=== PATIENT | male | born 1960 | race Caucasian/White ===

== ENCOUNTER 2016-12-08 20:15 | Inpatient (IN) | payer OTHER ==
[~2016-12-08] VITALS: Ht 182.9 cm; Wt 179.2 kg
[~2016-12-08 20:15] MED LIST: ALBUTEROL S2 MG/5 ML PO; ALBUTEROL SULFAT0.51 IH; ALBUTEROL1.25 MG/3 INH; AMBIEN10 MG PO; ASPIR 8181 MG PO; ASPIRIN81 MG PO; ATROVENT H0.017 MG/1 IH; BREO ELLIPTA1 PO1 IH; CALCIUM MAGNESIUM PO; CELEBREX200 MG PO; CLINDAMYCIN HC300 MG PO; COR3 PO; DETROL LA2 MG PO; DETROL LA4 MG PO; DICLOFENAC SODI75 MG PO; DITROPAN XL15 MG PO; FIORICET1 TAB PO; FLE10 PO; FLEXERIL10 MG PO; FLO4 PO; GABAPENTIN300 M3 PO; GLIPIZIDE5 MG PO; IBUPROFEN800 MG PO; INCRUSE EL62.5 MCG/A IH; KEFLEX500 MG PO; LAC PO; LANSOPRAZOLE30 M2 PO; LEVAQUIN500 MG PO; LIPI10 PO; LORAZEPAM1 MG PO; LOVASTATIN20 MG PO; MAXALT10 MG PO; MECLIZINE HYD12.5 MG PO; MEDDP PO; METFORMIN HCL1000 MG PO; METFORMIN HCL500 MG PO; MEVACOR20 MG PO; MIDRIN1 CAP PO; MIRUD PO; MOTRIN800 MG PO; MUCINEX600 MG PO; NEU300 PO; NEURONTIN600 MG PO; NOR5 PO; PRE30 PO; PREDNISONE1 MG PO; PREDNISONE10 MG PO; PREVACID SOLUTA15 MG PO; PRILOSEC20 MG PO; PROCARDIA XL90 MG PO; PULMICORT180 MCG/Ac IH; RESTORIL30 MG PO; ROZEREM8 M1 PO; SENTRY SENIOR1 TAB PO; SEROQUEL50 M1 PO; THERAGRAN-M1 TA4 PO; TRAZODONE HYDR100 MG PO; TRAZODONE HYDR150 MG PO; TRE400 PO; TUDORZA PR400 MCG/A1 IH; VENTOLIN H0.09 MG/A1 INH; VESICARE10 M1 PO; ZESTRIL5 MG PO; ZIT250 PO; ZOC10 PO; ZOF4 PO; ZOLOFT100 MG PO; ZOLOFT50 MG PO
--- NOTE | 2016-12-08 20:46 | NUR ---
PT TO ED WITH C/O SOB AND RIGHT SIDED CHEST PAIN X "COUPLE WEEKS" WITH WORSENING OF SYMPTOMS SINCE YESTERDAY. PER PT, PT ON 3L O2 AT HOME, "LITTLE BIT OF COUGHING WITH YELLOWISH" COLORED PHELGM. PT DENIES HAVING FEVER AT, HOWEVER HAD HOT AND COLD CHILLS. PT POINTS TO RIGHT CHEST WALL WHEN LOCATING PAIN, DESCRIBES PAIN SHARP AND PAIN ONLY WITH DEEP INSPIRATIONS. PT A&OX4,NO ACUTE DISTRESS NOTED, RESP EVEN AND UNLABORED, ON FULL CM WITH FAMILY MEMBER AT THE BEDSIDE. PER PT, PT ALSO TOOK IBUPROFEN AT NOON TO ATTEMPT TO EASE PAIN. PT LUNG SOUNDS ARE CLEAR TO ALL RUCKER AT THIS TIME.
--- NOTE | 2016-12-08 21:04 | NUR ---
PT MEDICATED PER ORDER. SEE EMAR.
[2016-12-08 21:21] LABS: BASOPHIL % 0.5 % (0-2); PLATELET COUNT 247 x10^3mcL (130-400)
[2016-12-08 21:26] LABS: CALCIUM 8.9 mg/dL (8.5-10.1); CARBON DIOXIDE 31.5 mmol/L (21-32); CHLORIDE SERUM 105 mmol/L (98-107); GFR1 > 60 mL/min; GLUCOSE SERUM 90 mg/dL (74-106); POTASSIUM SERUM 3.7 mmol/L (3.5-5.1); SODIUM SERUM 142 mmol/L (136-145)
[2016-12-08 21:30] LABS: ALBUMIN 3.5 g/dL (3.4-5.0); ALKALINE PHOSPHATASE 87 U/L (46-116); ALT/SGPT 31 U/L (16-63); AST/SGOT 17 U/L (15-37); BILIRUBIN TOTAL 0.5 mg/dL (0.20-1.00); TOTAL PROTEIN, SERUM 6.6 g/dL (6.4-8.2)
--- NOTE | 2016-12-08 21:48 | NUR ---
PT ALSO WITH O2 TANK FROM HOME.
[2016-12-08 21:59] LABS: CK-MB 0.5 ng/mL (0-3.6)
--- NOTE | 2016-12-08 22:29 | NUR ---
PT SITTING UP IN BED, POSITIONED TO COMFORT, STATES TO "JUST NOT FEELING GOOD" BUT UNABLE TO SPECIFY WHAT WAS "NOT FEELING GOOD". PT DENIES NAUSEA OR PAIN AT THIS TIME. PT A&XO4,NO ACUTE DISTRESS NOTED, RESP EVEN AND UNLABORED.
[2016-12-08] MEDS ORDERED: ZOLOFT25 MG (22:42)
[2016-12-08] MEDS ORDERED: PROVENTIL0.09 MG/A1 (22:42)
--- NOTE | 2016-12-08 22:52 | NUR ---
REPORT GIVEN TO JARRETT GONCALVES TO ASSUME CARE OF PT.
--- NOTE | 2016-12-08 23:09 | NUR ---
PT TRANSFERRED TO TELE BED 236B VIA [facility] WITH RN MARY AND EMT NEO AT THE BEDSIDE. PT ON CM AND O2 TRANSFERRED WITHOUT INCIDENCE. PT REMAINED A&OX4, NO DISTRESS NOTED,RESP EVEN AND UNLABORED.
[2016-12-08] MEDS ORDERED: SEROQUEL100 MG PO (23:10)
[2016-12-08 23:15] VITALS: BP 130/78
--- NOTE | 2016-12-08 23:24 | NUR ---
REC'D AOX4, SPEECH CLEAR, C/O SHERMAN, CHEST PAIN AND BACK PAIN 01/10. ATTACHED TELE 28. ON 3L VIA NC, NO SOB NOTED. AMBULATORY WITH STEADY GAIT. IV SITE WNL. ORIENTED TO ROOM AND SURROUNDINGS. CALL LIGHT WITHIN REACH, PROVIDED REPORT TO IVANNA FARIAS FOR CONTINUITY OF CARE.
[2016-12-08 23:39] LABS: CHOLESTEROL/HDL RATIO 3.5
[2016-12-08 23:46] LABS: FREE T4 0.62 ng/dL (0.76-1.46); FREE THYROXINE INDEX 1.5 ug/dL (1.4-4.5); T4(THYROXINE) 5.1 ug/dL (4.7-13.3)
[2016-12-08 23:48] VITALS: BP 130/78
--- NOTE | 2016-12-08 23:49 | NUR ---
PT AWAKE AND ALERT WITH C/O CHEST PAIN AND HEADACHE. GAVE PT MORPHINE IVP. PT TOLERATED IT WELL. IV INTACT ON THE RIGHT HAND INFUSING WITH NS AT 50 ML/HR. ON TELE # 28, SINUS RHYTHYM ON THE MONITOR. MADE PT COMFORTABLE. PLACED CALL LIGHT WITH IN REACH. WILL CONTINUE TO MONITOR.
[2016-12-09 01:01] LABS: T3 TOTAL 1.09 ng/mL
[2016-12-09 02:27] LABS: UA SPECIFIC GRAVITY 1.015 (1.005-1.035); microscopic required? YES; urine erythrocyte NEGATIVE (NEGATIVE)
[2016-12-09 02:35] LABS: AMPHETAMINE QUAL UR NONE DETECTED (NEG <=1000)
[2016-12-09 05:18] VITALS: BP 114/65
--- NOTE | 2016-12-09 05:27 | NUR ---
PT QUIET AND RESTING. NO SOB AND C/O RESPIRATORY DISCOMFORT. IV INTACT AND INFUSING ORDERED. MADE PT COMFORTABLE. WILL ENDORSE TO THE AM NURSE ACCORDINGLY.
[2016-12-09 06:32] LABS: PLATELET COUNT 257 x10^3mcL (130-400); RED CELL DISTRIBUTION WIDTH 14.4 % (11.5-14.5)
[2016-12-09 06:44] LABS: BASOPHIL % 0 % (0-2)
[2016-12-09 07:10] LABS: CALCIUM 9.3 mg/dL (8.5-10.1); CARBON DIOXIDE 29.3 mmol/L (21-32); CREATININE SERUM 1.1 mg/dL (0.7-1.3); GFR1 > 60 mL/min; GLUCOSE SERUM 218 mg/dL (74-106); MAGNESIUM 2.4 mg/dL (1.8-2.4); PHOSPHOROUS 2.7 mg/dL (2.5-4.9)
[2016-12-09 07:23] LABS: CHLORIDE SERUM 102 mmol/L (98-107); POTASSIUM SERUM 4.3 mmol/L (3.5-5.1); SODIUM SERUM 139 mmol/L (136-145)
--- NOTE | 2016-12-09 07:30 | NUR ---
BEDSIDE REPORT RECEIVED FROM JARRETT GONCALVES. PATIENT SITTING UP IN BED, AWAKE AND ALERT, O2 SAT 97% ON 3L NC. PATIENT REPORTING SHORTNESS OF BREATH. RT CALLED AND WILL COME TO GIVE TREATMENT. RR 16, REGULAR. A/OX4, DENIES HEADACHE OR DIZZINESS. TELE 28, RATE IN 50s. OCCASIONALLY DROPS INTO 40s, DR. BALDWIN AWARE. PALPABLE PERIPHERAL PULSES. LUNGS CTA APICES, DIMINISHED BASES, O2 SAT 95% ON ROOM AIR, NO COMPLAINT OF SHORTNESS OF BREATH OR CHEST PAIN. ABD SOFT, NONTENDER, BOWEL SOUNDS ACTIVE. DENIES SOLIS/VTG/BRANNON. REPORTS BM YESTERDAY, NORMAL. NO COMPLAINTS. AMBULATORY. REPORTS HE WAS NOT TAKING HIS THYROID MEDICATION ORDERED PRIOR TO ADMISSION. REPORTS FEELING BETTER AT THIS TIME. CALM AND COOPERATIVE. WILL MONITOR.
--- NOTE | 2016-12-09 07:30 | NUR ---
BEDSIDE REPORT RCD FROM JARRETT GONCALVES. PATIENT AWAKE, ALERT. REPORTING DIFFICULTY BREATHING. RT CALLED. O2 SAT 97% ON ROOM AIR, RR 16. LUNGS CLEAR TO APICES, DIMINISHED TO BASES. NO APPARENT DISTRESS NOTED. TELE 28, RATE IN 70s, NO COMPLAINT OF CHEST PAIN. 1+ BLE PITTING EDEMA, PALPABLE PERIPHERAL PULSES, SCDs IN PLACE. ABD OBESE, NONTENDER, BOWEL SOUNDS ACTIVE. DENIES SOLIS/VTG/BRANNON. LAST BM YESTERDAY, NORMAL. NO COMPLAINTS. AMBULATORY. SKIN INTACT. DENIES HEADACHE OR DIZZINESS, EQUAL HAND LINK TRAINER. NS 50 ML/HR TO RIGHT HAND W/O COMPLICATIONS. CALM AND COOPERATIVE. WILL MONITOR.
--- NOTE | 2016-12-09 09:20 | NUR ---
MEDICATIONS GIVEN PER MAR. PATIENT WITH NO NEEDS AT THIS TIME. WILL MONITOR.
[2016-12-09 10:00] VITALS: BP 121/59
--- NOTE | 2016-12-09 10:00 | NUR ---
OFFERED PATIENT LARGER BED. PATIENT REFUSES, STATES CURRENT BED IS FINE AND DOES NOT WISH TO HAVE A LARGER BED. WEIGHT 405 POUNDS ON BED SCALE.
--- NOTE | 2016-12-09 11:35 | NUR ---
PATIENT SITTING UP IN BED, NO NEEDS AT THIS TIME.
--- NOTE | 2016-12-09 14:58 | NUR ---
NS 10 ML/HR INFUSION RATE CHANGE. PATIENT SITTING UP IN BED, ALERT, NO NEEDS AT THIS TIME.
[2016-12-09 15:05] VITALS: BP 97/60
[2016-12-09 17:26] VITALS: BP 107/49
--- NOTE | 2016-12-09 18:48 | NUR ---
PATIENT REPORTING 7/10 HEADACHE, PERCOCET GIVEN PER OCT.
--- NOTE | 2016-12-09 19:27 | NUR ---
REPORT GIVEN TO JARRETT GONCALVES. PATIENT REPORTING NO RELIEF OF HIS HEADACHE AT THIS TIME, REPORTING 02/09. ENDORSED TO IVANNA. NS 10 ML/HR TO RIGHT HAND W/O COMPLICATIONS. 2L NC. BED LOW, CALL LIGHT WITHIN REACH. CARE ENDORSED.
--- NOTE | 2016-12-09 20:00 | NUR ---
PT A/A/O X4. DENIES DIZZINESS C/O HEADACHE, WITH PAIN LEVEL OF 7/10. GAVE PT MORPHINE IVP. PT TOLERATED IT WELL. BREATH SOUNDS CLEAR. BREATHING EVEN AND UNLABORED ON 3L NC. DENIES CHEST PAIN AND PRESSURE. BOWEL SOUNDS ACTIVE. NO C/O N/V AND ABD PAIN. PITTING EDEMA NOTED ON BLE. IV INTACT ON THE RIGHT HAND INFUSING WITH NS AT 10 ML/HR. MADE PT COMFORTABLE. PLACED CALL LIGHT WITH IN REACH. WILL CONTINUE TO MONITOR.
[2016-12-09 20:59] VITALS: BP 103/60
--- NOTE | 2016-12-10 02:00 | NUR ---
PT RESTING WITH EYES CLOSED. SHOWS NO DISTRESS AND DISCOMFORT. MADE PT COMFORTABLE. WILL CONTINUE TO MONITOR.
[2016-12-10 05:40] VITALS: BP 104/64
[2016-12-10 06:18] LABS: BASOPHIL % 0.1 % (0-2); PLATELET COUNT 258 x10^3mcL (130-400); RED CELL DISTRIBUTION WIDTH 14.5 % (11.5-14.5)
[2016-12-10 06:47] LABS: CALCIUM 9.3 mg/dL (8.5-10.1); CARBON DIOXIDE 27.5 mmol/L (21-32); CHLORIDE SERUM 102 mmol/L (98-107); GFR1 > 60 mL/min; GLUCOSE SERUM 161 mg/dL (74-106); MAGNESIUM 2.1 mg/dL (1.8-2.4); PHOSPHOROUS 3.9 mg/dL (2.5-4.9); POTASSIUM SERUM 4.2 mmol/L (3.5-5.1); SODIUM SERUM 137 mmol/L (136-145)
--- NOTE | 2016-12-10 07:02 | NUR ---
PT QUIET AND RESTING. NO SIGNIFICANT CHANGES NOTED. IV INTACT AND INFUSING ORDERED. MADE PT COMFORTABLE. WILL ENDORSE TO THE AM NURSE ACCORDINGLY.
[2016-12-10 08:00] VITALS: BP 106/58
[2016-12-10] MEDS ORDERED: ZITHROMAX500 MG PO (11:01)
[2016-12-10] MEDS ORDERED: LAC PO (11:02)
[2016-12-10] MEDS ORDERED: PREDNISONE5 M1 PO (11:04)
[2016-12-10 11:15] VITALS: BP 106/54
[2016-12-10] MEDS ORDERED: LIPI10 PO (11:29)
[2016-12-10 11:49] VITALS: BP 106/58
--- NOTE | 2016-12-10 14:10 | NUR ---
PT PROVIDED WITH DISCHARGE PAPERWORK AND INSTRUCTIONS. INSTRUCTED TO FOLLOW UP WITH PRIMARY CARE PROVIDER AND TO BRING DISCHARGE PACKET ON FOLLOW UP APPOINTMENT. HEP LOCK DISCONTINUED. PT BROUGHT DOWN TO DISCHARGE OFFICE BY MANAGER LAW, TO BE TAKEN HOME BY SON.
== END 2016-12-10 14:10 | disposition home or self-care (01) | DRG 140 ==
LOC: ED 20:15 → DU 22:22 → MU 12-10 04:40
PROVIDERS: Emergency Medicine; ADMIT Family Medicine
DX: J44.1 Chronic obstructive pulmonary disease with (acute) exacerbation (principal); J96.02 Acute respiratory failure with hypercapnia; D68.69 Other thrombophilia; E11.65 Type 2 diabetes mellitus with hyperglycemia; E11.42 Type 2 diabetes mellitus with diabetic polyneuropathy; E66.2 Morbid (severe) obesity with alveolar hypoventilation; I10 Essential (primary) hypertension; F31.30 Bipolar disorder, current episode depressed, mild or moderate severity, unspecified; R25.1 Tremor, unspecified; H26.9 Unspecified cataract; M47.892 Other spondylosis, cervical region; M94.0 Chondrocostal junction syndrome [Tietze]; G47.33 Obstructive sleep apnea (adult) (pediatric); F41.8 Other specified anxiety disorders; F32.9 Major depressive disorder, single episode, unspecified; M19.90 Unspecified osteoarthritis, unspecified site; Z99.81 Dependence on supplemental oxygen; D64.9 Anemia, unspecified; Z90.49 Acquired absence of other specified parts of digestive tract; Z88.8 Allergy status to other drugs, medicaments and biological substances; Z68.43 Body mass index [BMI] 50.0-59.9, adult; Z98.41 Cataract extraction status, right eye; Z87.891 Personal history of nicotine dependence; Z79.84 Long term (current) use of oral hypoglycemic drugs; Z80.0 Family history of malignant neoplasm of digestive organs; Z80.3 Family history of malignant neoplasm of breast
CPT/HCPCS: 36600; 80307; 83880; 84439; J0696; J1644; J2270; J2920; J2930; J3475; J7030; J7512; J7613; J7620; J7644; Q0092

== ENCOUNTER 2017-01-06 22:03 | Inpatient (IN) | payer OTHER ==
[~2017-01-06] VITALS: Ht 182.9 cm; Wt 184.2 kg
[~2017-01-06 22:03] MED LIST changes: +PREDNISONE5 M1 PO; +PROVENTIL0.09 MG/A1; +SEROQUEL100 MG PO; +ZITHROMAX500 MG PO; +ZOLOFT25 MG
--- NOTE | 2017-01-06 22:17 | NUR ---
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 PT REPORTS AN INCREASE IN SOB STARTING TODAY. PT STATES HE HAS HX OF COPD AND "I'M USUALLY ALWAYS SOB BUT TODAY IT GOT WORSE". PT REPORTS RLE PAIN X3 DAYS. PT HAS REDNESS AND SWELLING TO RLE. PT STATES HE IS ON O2 3L VIA NC AT HOME. RESPIRATIONS EVEN AND UNLABORED. NO ACUTE DISTRESS NOTED. BED IN LOW POSITION. DAUGHTER AT BEDSIDE. CALL LIGHT WITHIN REACH.
--- NOTE | 2017-01-06 22:49 | NUR ---
LAB AT BEDSIDE
[2017-01-06 23:00] LABS: BASOPHIL % 0.7 % (0-2); PLATELET COUNT 231 x10^3mcL (130-400)
[2017-01-06 23:05] LABS: CALCIUM 8.5 mg/dL (8.5-10.1); CARBON DIOXIDE 29.8 mmol/L (21-32); CHLORIDE SERUM 107 mmol/L (98-107); GFR1 > 60 mL/min; GLUCOSE SERUM 142 mg/dL (74-106); POTASSIUM SERUM 3.9 mmol/L (3.5-5.1); SODIUM SERUM 143 mmol/L (136-145)
[2017-01-06 23:09] LABS: RED CELL DISTRIBUTION WIDTH 14.9 % (11.5-14.5)
[2017-01-06 23:10] LABS: ALKALINE PHOSPHATASE 106 U/L (46-116); ALT/SGPT 27 U/L (16-63); AST/SGOT 19 U/L (15-37); BILIRUBIN TOTAL 0.33 mg/dL (0.20-1.00); TOTAL PROTEIN, SERUM 6.5 g/dL (6.4-8.2)
[2017-01-06 23:11] LABS: ALBUMIN 3.1 g/dL (3.4-5.0)
[2017-01-06 23:21] LABS: CK-MB < 0.5 ng/mL (0-3.6); CREATINE KINASE 77 U/L (39-308)
--- NOTE | 2017-01-07 00:35 | NUR ---
PT LAYING IN BED, IN POSITION OF COMFORT. PT STATES PAIN IS TOLERABLE. RESPIRATIONS EVEN AND UNLABORED. NO ACUTE DISTRESS NOTED. BED IN LOW POSITION. CALL LIGHT WITHIN REACH.
[2017-01-07] MEDS ORDERED: SERO100 PO (01:05)
[2017-01-07] MEDS ORDERED: PRE30 PO (01:06)
[2017-01-07] MEDS ORDERED: ASPIR 8181 MG PO (01:06)
[2017-01-07] MEDS ORDERED: VESICARE10 M1 PO (01:06)
[2017-01-07] MEDS ORDERED: GLUCOTROL5 MG PO (01:06)
[2017-01-07] MEDS ORDERED: ZOLOFT100 MG PO (01:07)
[2017-01-07] MEDS ORDERED: CELEBREX200 MG PO (01:07)
[2017-01-07] MEDS ORDERED: DICLOFENAC SODI75 MG PO (01:08)
[2017-01-07] MEDS ORDERED: NOR5 PO (01:08)
[2017-01-07] MEDS ORDERED: GABAPENTIN600 M1 PO (01:08)
[2017-01-07] MEDS ORDERED: MAGNESI PO (01:09)
[2017-01-07] MEDS ORDERED: CALCIUM PO (01:09)
[2017-01-07] MEDS ORDERED: MUCINEX DM1 TE1 PO (01:09)
[2017-01-07] MEDS ORDERED: BREO ELLIPTA1 PO1 IH (01:10)
[2017-01-07] MEDS ORDERED: INCRUSE EL62.5 MCG/A IH (01:11)
[2017-01-07] MEDS ORDERED: MID PO (01:12)
[2017-01-07] MEDS ORDERED: FLE10 (01:12)
[2017-01-07] MEDS ORDERED: ZOF4 (01:12)
[2017-01-07] MEDS ORDERED: SENTRY TABLET1 EACH PO (01:13)
[2017-01-07] MEDS ORDERED: ALBUTEROL SULFAT0.51 (01:13)
[2017-01-07] MEDS ORDERED: MECLIZINE HYDRO25 M1 PO (01:13)
[2017-01-07] MEDS ORDERED: LORAZEPAM1 MG (01:14)
--- NOTE | 2017-01-07 01:36 | NUR ---
ULTRASOUND AT BEDSIDE.
--- NOTE | 2017-01-07 01:37 | NUR ---
REPORT GIVEN TO TALYA FARIAS.
[2017-01-07 02:00] LABS: CHOLESTEROL/HDL RATIO 2.4; PHOSPHOROUS 2.4 mg/dL (2.5-4.9)
[2017-01-07 02:04] LABS: T3 TOTAL 0.8 ng/mL
[2017-01-07 02:06] LABS: FREE T4 0.7 ng/dL (0.76-1.46); FREE THYROXINE INDEX 1.4 ug/dL (1.4-4.5); T4(THYROXINE) 4.8 ug/dL (4.7-13.3)
[2017-01-07 02:50] VITALS: BP 143/73
--- NOTE | 2017-01-07 03:42 | NUR ---
ADMITTED A 6 YEAR MALE WITH DIAGNOSIS OF CHEST PAIN,PT CAME TO THE FLOOR VIA [facility] AND WAS ACCOMPANIED BY THE NURSE AND THE HOSITAL PERSONNEL,PT WAS RECIEVED TO BED AND WAS MADE COMFORTABLE IN BED.ON INITIAL ASSESSMENT PATIENT IS AAO REG RESP NO SOB,ABDO IS SOFT OBSES WITH ACTIVE BOWEL SOUNDS,PT HAD HL TO THE LT WRIST WITH THE SITE PATENT AND INTACT,PT WAS ORIENTED TO THE ROOM,CALL LIGHT AND THE BATHROOM,PT VERBALIZED UNDERSTANDING,BED WAS PUT ON THE LOW POSITION AND WITH CALL LIGHT EASY REACHED,PT ON TELE MONITOR AND IN NSR NO CHEST PAIN REPORTED ON ARRIVAL TO THE FLOOR,WILL CONTINUE TO MONITOR.
[2017-01-07 04:50] VITALS: BP 121/59
[2017-01-07 06:31] LABS: BASOPHIL % 0.3 % (0-2); PLATELET COUNT 228 x10^3mcL (130-400)
--- NOTE | 2017-01-07 06:38 | NUR ---
PT HAD A RESTING NIGHT KEPT CLEAN AND DRY TO TOUCH NO CHANGE IN CONDITION AT THIS TIME,WILL CONTINUE TO MONITOR.
[2017-01-07 06:55] LABS: RED CELL DISTRIBUTION WIDTH 14.8 % (11.5-14.5)
[2017-01-07 07:30] LABS: CALCIUM 8.5 mg/dL (8.5-10.1); CARBON DIOXIDE 33.5 mmol/L (21-32); CHLORIDE SERUM 108 mmol/L (98-107); GFR1 > 60 mL/min; GLUCOSE SERUM 97 mg/dL (74-106); PHOSPHOROUS 3.3 mg/dL (2.5-4.9); POTASSIUM SERUM 4.5 mmol/L (3.5-5.1); SODIUM SERUM 145 mmol/L (136-145)
--- NOTE | 2017-01-07 07:37 | NUR ---
A/O X4. CLEAR SPEECH. FOLLOW COMMANDS. ON TEL 19 SR HR 84. RADIAL AND PEDAL PULSES PALPABLE. NO EDEMA OR SWELLING NOTED. <3 SECS CAP REFILL. ON 3L NASAL CANULA. SAT 97%. BREATHING EVEN AND UNLABORED. DIMINISHED LUNG SOUNDS. NO NVD. VOIDING ADEQUATELY. AMBUALTORY WITH STEADY GAIT. DENIES PAIN AT THIS TIME. IV SITE INTACT ON LEFT WRIST. NS INFUSING WELL AT 100ML/HR. WILL CONTINUE TO MONITOR. CALL LIGHT WTIHIN REACH.
--- NOTE | 2017-01-07 09:35 | NUR ---
TOOK MEDS WITHOUT DIFFICULTY.
[2017-01-07 10:25] VITALS: BP 123/76
--- NOTE | 2017-01-07 11:09 | NUR ---
Pt PLACED ON SALINE LOCK FOR SCAN .
--- NOTE | 2017-01-07 12:30 | NUR ---
DR ANN CAME AT BEDSIDE.
--- NOTE | 2017-01-07 14:10 | NUR ---
HEPARIN DRIP INITIATED.
[2017-01-07 15:01] VITALS: BP 108/64
--- NOTE | 2017-01-07 16:30 | NUR ---
COMPLAINS OF SHARP RIGHT LEG PAIN 02/09. MORPHINE IV GIVEN. WILL CONTINUE TO MONITOR.
[2017-01-07 17:09] VITALS: BP 124/64
--- NOTE | 2017-01-07 17:46 | NUR ---
SPOKE TO DR MARCELINO REGARDING LUNG SCAN NEGATIVE RESULT .
[2017-01-07 17:56] LABS: microscopic required? NO
[2017-01-07 18:03] LABS: urine erythrocyte NEGATIVE (NEGATIVE)
--- NOTE | 2017-01-07 18:20 | NUR ---
NOTIFIED DR GOLDSTEIN REGARDING DR MARCELINO WANTING TO TALK TO HIM TO DC HEPARIN DRIP.
--- NOTE | 2017-01-07 18:37 | NUR ---
PAIN RELIEF 2/10 THIS TIME. WILL CONTINUE TO MONITOR.
--- NOTE | 2017-01-07 19:23 | NUR ---
PT RECIEVED AAO REG RESP NO SOB,V/S STABLE,REG RESP NO SOB,PT ON HEPARIN DRIP AT 1500 UNIT PER PROTOCOL AND NO ADVERESE REACTION NOTICE AT THIS TIME,ABDO IS SOFT OBESE WITH ACTIVE BOWEL SOUNDS,PT ON TELE MONITOR AND IN NSR NO ECTOPY OR CHEST PAIN AT THIS TIME,CALL LIGHT MADE CLOSE TO THE PATIENT AND WILL CONTINUE TO MONITOR.
--- NOTE | 2017-01-07 21:51 | NUR ---
CALL WITH PTT 66.0 PER THE HEPARIN PROTOCOL WAS REDUCE BY 4 CC/HR AND WILL DONE PTT IN 4 HOURS NO ADVERES EFFECT AT THIS TIME.
--- NOTE | 2017-01-07 21:54 | NUR ---
HEPARIN WAS INFUSING AT 1500 UNIT WHICH IS EQUIVALENT AT 15 CC/HR,SO HEPARIN IS BEEN REDUCE BY 4 CC/HER WHICH IS INFUSING NOW AT 1100 UNIT WHICH IS 11 CC/R,WILL CONTINUE TO MONITOR.
[2017-01-07 22:06] VITALS: BP 120/87
--- NOTE | 2017-01-07 22:46 | NUR ---
HEPARIN DRIP D/C ORDER AND WILL CONTINUE TO MONITOR.
[2017-01-08 06:07] VITALS: BP 106/64
--- NOTE | 2017-01-08 06:24 | NUR ---
PT HAD A RESTING NIGHT V/S STABLE,KEPT CLEAN AND DRY TO TOUCH NO CHANGE IN CONDITION AT THIS TIME.
--- NOTE | 2017-01-08 07:47 | NUR ---
A/O X4. CLEAR SPEECH. FOLLOW COMMANDS. ON TEL 19 SR HR 71. RADIAL AND PEDAL PULSES PALPABLE. SWOLLEN KAREN LOWER LEGS. <3 SECS CAP REFILL. ON 3L NASAL CANULA. SAT 97%. BREATHING EVEN AND UNLABORED. DIMINISHED LUNG SOUNDS. NO NVD. VOIDING ADEQUATELY. AMBUALTORY WITH STEADY GAIT. DENIES PAIN AT THIS TIME. IV SITE INTACT ON LEFT WRIST. NS INFUSING WELL AT 100ML/HR. WILL CONTINUE TO MONITOR. CALL LIGHT WTIHIN REACH.
--- NOTE | 2017-01-08 08:54 | NUR ---
TOOK MEDS WITHOUT DIFFICULTY. NO DISTRESS NOTED. WILL CONTINUE TO MONITOR.
[2017-01-08 09:44] VITALS: BP 97/60
--- NOTE | 2017-01-08 12:30 | NUR ---
RESTING COMFORTABLY. NO DISTRESS NOTED. WILL CONTINUE TO MONITOR.
[2017-01-08 14:09] VITALS: BP 124/65
--- NOTE | 2017-01-08 15:39 | NUR ---
RESTING COMFORTABLY. NO DISTRESS NOTED. FAMILY AT BEDSIDE.
--- NOTE | 2017-01-08 17:13 | NUR ---
COMPLAINS OF SHARP RIGHT LEG PAIN 02/09. IV MORHPINE GIVEN. WILL CONTINUE TO MONITOR.
[2017-01-08 19:40] VITALS: BP 122/57
--- NOTE | 2017-01-08 19:40 | NUR ---
PT AWAKE AND ALERT. AOX4. VERBAL WITH CLEAR SPEECH. NO S/S OF RESPIRATORY DISTRESS NOTED. DENIES ANY SOB. 96% ON 3L O2 VIA NC. DENIES ANY CHEST PAIN. ON TELE 19, NSR. ABD FIRM AND ROUND. BOWEL SOUNDS ACTIVE. SKIN WARM AND DRY. IV TO RIGHT HAND PATENT AND INTACT. NO S/S OF INFECTION NOTED. NOTED WITH EDEMA TO BLE, MORE TO RLE 2+. SCDS IN PLACE. PULSES PALPABLE. DENIES ANY PAIN AT THIS TIME. CALL LIGHT WITHIN REACH. WILL CONTINUE TO MONITOR.
--- NOTE | 2017-01-09 00:20 | NUR ---
PT C/O 8/10 PAIN TO RIGHT LEG. PRN MORPHINE 2 MG IVP GIVEN. REMAINS ON 3L O2 VIA NC. NO S/S OF RESPIRATORY DISTRESS NOTED. IV PATENT AND INTACT. CALL LIGHT WITHIN REACH. WILL CONTINUE TO MONITOR.
--- NOTE | 2017-01-09 01:45 | NUR ---
PT RESTING IN BED WITH EYES CLOSED. REMAINS ON O2 3L VIA NC. NO S/S OF RESPIRATORY DISTRESS NOTED. BREATHING EQUAL AND UNLABORED. NO S/S OF DISTRESS NOTED. RESTING COMFORTABLY WITH RELAXED FACIAL FEATURES. CALL LIGHT WITHIN REACH. WILL CONTINUE TO MONITOR.
[2017-01-09 05:32] VITALS: BP 138/72
--- NOTE | 2017-01-09 05:49 | NUR ---
PT SLEPT WELL THROUGH THE NIGHT. AWAKE AND ALERT AT THIS TIME. PT C/O 01/10 PAIN TO RLE. PRN MORPHINE 2 MG IVP GIVEN. REMAINS ON O2 3L VIA NC. NO S/S OF RESPIRATORY DISTRESS NOTED. IV PATENT AND INTACT. CALL LIGHT WITHIN REACH. WILL CONTINUE TO MONITOR.
--- NOTE | 2017-01-09 06:46 | NUR ---
PT TRANSFERRED TO [facility]. TELE MONITOR DISCONTINUED.
--- NOTE | 2017-01-09 08:00 | NUR ---
RECIEVED PATIENT ALERT AND ORIENTED TIMES FOUR. PATIENT WIHT IV INTACT AND PATIEN HAS BEEN EATTING HIS MEAL AND TOLERATED WELL. LUNGS ARE DIMINIHSED BUT CLEAR AND BOWEL SOUNDS ACTIVE AND ABDOMEN IS DISTENDED AND FIRM BUT DENIES CONSTIPATION OR PAIN. PATIENT HAS HISTORY OF PAIN TO THE BACK AND RECENTLY TO THE LOWER EXTREMITIES. VITALS AT THIS TIME AT 96.6, 71, 20, 138/72, 98%. PATIEN TIWHT LAST BLOOD SUGAR AT 87 AND PATIENT AHS BEEN WITH ROCEPHIN AND ZITHROMAX ADN NO ADVERSE REACTION NOTED. PATIEN THAS NOTED AIC AT 6.5. PATIENT AHS HISTORY OF COPD, SLEEP APNEA AND EMPHASEMA AN, HTN. AND OSTEO. ARTHRITIS. NOTED SWELLING TO THE LOWER EXTREMITIES AND WITH TWO PULSE TO THE RIGHT AND ONE TO THE LEFT. PATIENT HAS BEEN AMBULATORY AND TOLERATED WELL. NO REQUEST FOR PAIN MEDICATION AT THIS TIME. WILL CONTINUE TO MONTIOR INDICATED. HOPES TO BE DISCHARGE TO HOME TODAY.
--- NOTE | 2017-01-09 09:30 | NUR ---
PATIENT SEEN BY THE INTERNS AND RESIDENT AND PLAN OF CARE FOR DISCHARGE HOME TODAY.
[2017-01-09 10:24] VITALS: BP 108/71
[2017-01-09] MEDS ORDERED: GLIPIZIDE2.5 M1 PO (11:25)
[2017-01-09 11:27] VITALS: BP 138/72
--- NOTE | 2017-01-09 13:30 | NUR ---
DISCHARGE TO HOME WITH ALL BELOINGINGS. TOM TBLOOD SUGAR PRIOR TO DISCHARGE AT 71 AND PATIENT CALLED FAMILY FOR EVIDENCE SPECIALIST. HE PLANS TO EAT PRIOR TO LEAVING.
== END 2017-01-09 13:40 | disposition home or self-care (01) | DRG 203 ==
LOC: ED 22:03 → DU 01-07 00:55 → MU 01-09 06:51
PROVIDERS: Emergency Medicine; ADMIT Family Medicine
DX: M94.0 Chondrocostal junction syndrome [Tietze] (principal); J96.01 Acute respiratory failure with hypoxia; E11.42 Type 2 diabetes mellitus with diabetic polyneuropathy; E44.0 Moderate protein-calorie malnutrition; D68.69 Other thrombophilia; E11.40 Type 2 diabetes mellitus with diabetic neuropathy, unspecified; E11.65 Type 2 diabetes mellitus with hyperglycemia; E66.2 Morbid (severe) obesity with alveolar hypoventilation; G47.33 Obstructive sleep apnea (adult) (pediatric); F31.30 Bipolar disorder, current episode depressed, mild or moderate severity, unspecified; M47.892 Other spondylosis, cervical region; M19.90 Unspecified osteoarthritis, unspecified site; E83.39 Other disorders of phosphorus metabolism; G56.03 Carpal tunnel syndrome, bilateral upper limbs; Z88.1 Allergy status to other antibiotic agents; Z80.0 Family history of malignant neoplasm of digestive organs; Z80.42 Family history of malignant neoplasm of prostate; Z68.43 Body mass index [BMI] 50.0-59.9, adult; Z82.5 Family history of asthma and other chronic lower respiratory diseases; Z87.891 Personal history of nicotine dependence; Z90.49 Acquired absence of other specified parts of digestive tract; Z98.49 Cataract extraction status, unspecified eye
CPT/HCPCS: 78598; 83880; 84439; 85378; A9540; J0696; J1644; J1650; J2270; J7030; J7040; J7620; J7626; J8597; Q0092

== ENCOUNTER 2017-02-08 21:36 | Inpatient (IN) | payer OTHER ==
[~2017-02-08] VITALS: Ht 182.9 cm; Wt 227.0 kg
[~2017-02-08 21:36] MED LIST changes: +ALBUTEROL SULFAT0.51; +CALCIUM PO; +FLE10; +GABAPENTIN600 M1 PO; +GLIPIZIDE2.5 M1 PO; +GLUCOTROL5 MG PO; +LORAZEPAM1 MG; +MAGNESI PO; +MECLIZINE HYDRO25 M1 PO; +MID PO; +MUCINEX DM1 TE1 PO; +SENTRY TABLET1 EACH PO; +SERO100 PO; +ZOF4
[2017-02-08 22:54] LABS: BASOPHIL % 0.5 % (0-2); PLATELET COUNT 250 x10^3mcL (130-400)
[2017-02-08 22:59] LABS: RED CELL DISTRIBUTION WIDTH 15.6 % (11.5-14.5)
[2017-02-08 23:00] LABS: CALCIUM 8.8 mg/dL (8.5-10.1); CARBON DIOXIDE 32.5 mmol/L (21-32); CHLORIDE SERUM 103 mmol/L (98-107); CREATININE SERUM 1.2 mg/dL (0.7-1.3); GFR1 > 60 mL/min; GLUCOSE SERUM 144 mg/dL (74-106); POTASSIUM SERUM 3.9 mmol/L (3.5-5.1); SODIUM SERUM 145 mmol/L (136-145)
[2017-02-08 23:04] LABS: ALBUMIN 3.4 g/dL (3.4-5.0); ALKALINE PHOSPHATASE 138 U/L (46-116); ALT/SGPT 31 U/L (16-63); AST/SGOT 21 U/L (15-37); BILIRUBIN TOTAL 0.5 mg/dL (0.20-1.00); CHOLESTEROL 151 mg/dL (<200); HDL CHOLESTEROL 38 mg/dL (40-60); TOTAL PROTEIN, SERUM 6.5 g/dL (6.4-8.2)
[2017-02-09] VITALS (8 sets, daily range): BP systolic 110–130; BP diastolic 55–70; Ht 182.9 cm; Wt 227.0 kg
[2017-02-09 02:43] LABS: T3 TOTAL 0.92 ng/mL
[2017-02-09 02:44] LABS: CHOLESTEROL/HDL RATIO 3.9; MAGNESIUM 2.1 mg/dL (1.8-2.4); PHOSPHOROUS 2.9 mg/dL (2.5-4.9)
[2017-02-09 02:53] LABS: FREE T4 0.62 ng/dL (0.76-1.46)
[2017-02-09 02:57] LABS: FREE THYROXINE INDEX 1.2 ug/dL (1.4-4.5); T4(THYROXINE) 3.8 ug/dL (4.7-13.3)
[2017-02-09 03:15] LABS: microscopic required? NO
[2017-02-09 03:34] LABS: UA SPECIFIC GRAVITY 1.025 (1.005-1.035); urine erythrocyte NEGATIVE (NEGATIVE)
[2017-02-09 03:49] LABS: AMPHETAMINE QUAL UR NONE DETECTED (NEG <=1000)
[2017-02-10 06:01] VITALS: BP 118/62
[2017-02-10 06:16] LABS: CALCIUM 9.1 mg/dL (8.5-10.1); CARBON DIOXIDE 27.7 mmol/L (21-32); CHLORIDE SERUM 105 mmol/L (98-107); CREATININE SERUM 1.2 mg/dL (0.7-1.3); GFR1 > 60 mL/min; GLUCOSE SERUM 214 mg/dL (74-106); PHOSPHOROUS 3.3 mg/dL (2.5-4.9); POTASSIUM SERUM 4.4 mmol/L (3.5-5.1); SODIUM SERUM 143 mmol/L (136-145)
[2017-02-10 06:44] LABS: PLATELET COUNT 248 x10^3mcL (130-400)
[2017-02-10 07:14] LABS: BASOPHIL % 0 % (0-2); RED CELL DISTRIBUTION WIDTH 15.8 % (11.5-14.5)
[2017-02-10 09:09] VITALS: BP 125/59
[2017-02-10] MEDS ORDERED: MEDDP PO (11:38)
[2017-02-10] MEDS ORDERED: METOPROLOL TART25 M1 PO (11:50)
[2017-02-10] MEDS ORDERED: LOVASTATIN20 MG (11:56)
[2017-02-10] MEDS ORDERED: ECO81 PO (12:03)
[2017-02-10 13:11] VITALS: BP 125/59
== END 2017-02-10 16:00 | disposition home or self-care (01) | DRG 133 ==
LOC: ED 21:36 → DU 23:46 → MU 23:46 → DU 02-09 00:20 → MU 02-10 06:59
PROVIDERS: Emergency Medicine; ADMIT Family Medicine
DX: J96.01 Acute respiratory failure with hypoxia (principal); I50.43 Acute on chronic combined systolic (congestive) and diastolic (congestive) heart failure; E11.40 Type 2 diabetes mellitus with diabetic neuropathy, unspecified; E11.65 Type 2 diabetes mellitus with hyperglycemia; J44.1 Chronic obstructive pulmonary disease with (acute) exacerbation; E66.01 Morbid (severe) obesity due to excess calories; Z68.44 Body mass index [BMI] 60.0-69.9, adult; F43.12 Post-traumatic stress disorder, chronic; Z88.8 Allergy status to other drugs, medicaments and biological substances; M47.9 Spondylosis, unspecified; G47.30 Sleep apnea, unspecified; Z90.49 Acquired absence of other specified parts of digestive tract; Z98.49 Cataract extraction status, unspecified eye; Z96.652 Presence of left artificial knee joint; Z79.82 Long term (current) use of aspirin; Z80.3 Family history of malignant neoplasm of breast; Z80.0 Family history of malignant neoplasm of digestive organs; Z83.6 Family history of other diseases of the respiratory system; F17.200 Nicotine dependence, unspecified, uncomplicated
CPT/HCPCS: 83880; 84439; 94150; J1644; J1940; J2270; J2405; J2920; J2930; J7620; Q0092

== ENCOUNTER 2017-02-24 15:21 | Inpatient (IN) | payer OTHER ==
[~2017-02-24] VITALS: Ht 182.9 cm; Wt 183.4 kg
[~2017-02-24 15:21] MED LIST changes: +ECO81 PO; +LOVASTATIN20 MG; +METOPROLOL TART25 M1 PO
--- NOTE | 2017-02-24 15:35 | NUR ---
PT AMBULATORY TO LOBBY WITH FAMILY. PT ALERT AND ORIENTED, BREATHING E/U PT ON HOME OXYGEN AT 3L VIA NC. PT AWAITING ROOM AVAILABILITY.
--- NOTE | 2017-02-24 15:37 | NUR ---
EKG DONE IN TRIAGE SHOWN TO DR AND PLACED IN PTS CHART.
--- NOTE | 2017-02-24 16:22 | NUR ---
PT PRESENTED TO ED WITH C/O SOB AND CHEST PAIN SINCE THIS AM. PT REPORTS PAIN "STABBING AND PRESSURE." PT ALSO REPORTS DIZZINESS X 2 DAYS. PAIN LEVEL 6/10. PT A/O X4, NOTED LABORED BREATHING, PT ON O2 3L VIA NS. PT USES HOME OXYGEN. DR. SIERRA PERFORMED MSE.
--- NOTE | 2017-02-24 16:22 | NUR ---
PT REPORTED TO ED WITH C/O CHEST PAIN AND SOME SOB. PT REPORTS CHEST PAIN SINCE THIS AM. PT REPORTS DIZZINESS X 2 WEEKS AGO. PT REPORTS "STABBING & PRESSSURE" CHEST PAIN AT 6/10. PT IS A/O X 4, CLEAR LUNGS SOUNDS, NOTED LABORED BREATHING, PT ON O2 3L VIA NS. PT HAS A HX OF AUTOMOTIVE ENGINEER. PT STABLE AND UNDER NO ACUTE DISTRESS.
--- NOTE | 2017-02-24 16:43 | NUR ---
X-RAY AT BEDSIDE
[2017-02-24 16:47] LABS: BASOPHIL % 0.5 % (0-2); PLATELET COUNT 210 x10^3mcL (130-400)
[2017-02-24 16:50] LABS: CALCIUM 8.9 mg/dL (8.5-10.1); CHLORIDE SERUM 105 mmol/L (98-107); CREATININE SERUM 1.1 mg/dL (0.7-1.3); GFR1 > 60 mL/min; GLUCOSE SERUM 125 mg/dL (74-106); POTASSIUM SERUM 4.4 mmol/L (3.5-5.1); SODIUM SERUM 141 mmol/L (136-145)
--- NOTE | 2017-02-24 16:50 | NUR ---
PT RECEIVING BREATHING TX, NO ACUTE DISTRESS
[2017-02-24 16:54] LABS: ALKALINE PHOSPHATASE 95 U/L (46-116); ALT/SGPT 34 U/L (16-63); AST/SGOT 18 U/L (15-37); BILIRUBIN TOTAL 0.39 mg/dL (0.20-1.00); TOTAL PROTEIN, SERUM 6.4 g/dL (6.4-8.2)
[2017-02-24 17:02] LABS: ALBUMIN 3.2 g/dL (3.4-5.0)
[2017-02-24 17:06] LABS: CK-MB 0.6 ng/mL (0-3.6)
--- NOTE | 2017-02-24 17:22 | NUR ---
PT REPORTS PAIN LEVEL 7/10
--- NOTE | 2017-02-24 17:53 | NUR ---
UNABLE TO RECONCILE MEDS AT THIS TIME, FAMILY WILL BE BRINGING LIST OF MEDS
--- NOTE | 2017-02-24 18:20 | NUR ---
REPORT TO MARY FARIAS TO ASSUME CARE, NEED IV PRIOR TO SENDING UP
[2017-02-24 18:35] LABS: CHOLESTEROL/HDL RATIO 3.8; PHOSPHOROUS 3.1 mg/dL (2.5-4.9)
--- NOTE | 2017-02-24 18:35 | NUR ---
RECEIVED PT FROM ED VIA [facility], CAME IN DUE TO SOB AND CHEST PAIN. AAOX4. C/O MILD DIZZINESS. MILD SOB NOTED, W/ NON-PRODUCTIVE COUGH. LUNG SOUNDS DIMINSIHED ON AUSCULTATION, ON 3LPM/NC, O2 SAT=94%. DENIES CHEST PAIN/PRESSURE, SINUS TACHYCARDIA ON THE MONITOR, HR AT 106. C/O HARD STOOLS. IV SITE PATENT AND INTACT. SIDE RAILS UPX2. CALL LIGHT ON REACH. ENDORSED
[2017-02-24 18:41] LABS: T3 TOTAL 0.78 ng/mL
[2017-02-24 18:43] LABS: FREE T4 0.7 ng/dL (0.76-1.46); FREE THYROXINE INDEX 1.9 ug/dL (1.4-4.5); T4(THYROXINE) 5.9 ug/dL (4.7-13.3)
[2017-02-24 18:48] VITALS: BP 155/82
[2017-02-24 18:53] VITALS: Ht 182.9 cm; Wt 183.4 kg
--- NOTE | 2017-02-24 19:00 | NUR ---
ENDORSE CARE TO INCOMING RN. PT IS A/O X4. PT BREATHING EVEN AND UNLABORED ON 3L. NO SOB OR RESP DISTRESS NOTED. CALL LIGHT IN REACH.
--- NOTE | 2017-02-24 20:00 | NUR ---
RECEIVED PT IN BED,ALERT AND ORIENTED. ABLE TO VERBALIZE NEEDS. RESP. EVEN AND UNLABORED. LUNGS SOUNDS DIM. BILAT. 02 AT 3L/MIN VIA NC, SAT. WELL. NO DISTRESS NOTED. AFEBRILE AND VITAL SIGNS STABLE. HL TO RT HAND INTACT AND PATENT. SR ON THE MONITOR, DENIES CHEST PAIN OR PRESSURE. ABLE TO MOVE ALL EXTS. NO COMPLAINTS NOTED AT THIS TIME. ASSISTED WITH HS CARE. CALL LIGHT WITHIN REACH. WILL CONTINUE TO MONITOR.
[2017-02-24 20:30] VITALS: BP 155/82
[2017-02-24 21:13] VITALS: BP 133/85
[2017-02-24 22:11] LABS: microscopic required? NO
[2017-02-24 22:15] LABS: UA SPECIFIC GRAVITY 1.025 (1.005-1.035); urine erythrocyte NEGATIVE (NEGATIVE)
[2017-02-24 22:23] LABS: AMPHETAMINE QUAL UR NONE DETECTED (NEG <=1000)
--- NOTE | 2017-02-24 22:45 | NUR ---
DUE MEDS GIVEN ORDERED, BROOKE. WELL. COMPLAINED OF GEN. BODY PAIN, 02/09, MORPHINE SULFATE IV GIVEN ORDERED. WILL CONTINUE TO MONITOR.
[2017-02-24] MEDS ORDERED: DICLOFENAC SODI75 MG PO (23:20)
--- NOTE | 2017-02-25 | NUR ---
PT STATES PAIN RELIEF AT THIS TIME. WILL CONTINUE TO MONITOR.
--- NOTE | 2017-02-25 03:06 | NUR ---
APPEARS ASLEEP, WITH EYES CLOSED. EASILY AROUSABLE. [address] , NO DISTRESS NOTED. WILL CONTINUE TO MONITOR.
[2017-02-25 05:51] VITALS: BP 118/71
--- NOTE | 2017-02-25 06:40 | NUR ---
AFEBRILE AND VITAL SIGNS STABLE. RESP. EVEN AND UNLABORED. [address], NO DISTRESS NOTED. DUE MEDS GIVEN ORDERED. BROOKE. WELL. KEPT COMFORTABLE. NO COMPLAINTS NOTED TA THIS TIME. SLEPT WELL. WILL ENDORSE TO INCOMING NURSE.
--- NOTE | 2017-02-25 07:45 | NUR ---
RC'D PT A/A/O/X4 RESTING IN BED. PT REPORTS MILD DIZZINESS. ON TELE 18 WITH SR. DENIES PRESSURE/PAIN. PALP PULSES. NO EDEMA. RESPIRATIONS EQUAL AND SLIGHTLY LABORED. ABDOMEN OBESE AND NON TENDER. DENIES N/V. ACTIVE BS X4. VOIDS FREELY. DENIES BURNING. AMBULATORY WITH BP. SKIN W/D/I. R HAND IV, WNL. PT PLEASANT AND COOPERATIVE. CALL LIGHT IN REACH. WILL CONTINUE TO MONITOR.
[2017-02-25 09:46] VITALS: BP 117/73
--- NOTE | 2017-02-25 11:20 | NUR ---
DR. MALLOY RETURN PAGE REGARDING PT'S C/O PAIN AND REQUEST FOR MORPHINE. PER MD SHE WILL SPEAK WITH PT AND EVALUATE NEED FOR PAIN MEDS. WILL CONT TO MONITOR.
--- NOTE | 2017-02-25 12:18 | NUR ---
PT COMPLAINING OF 6/10 PAIN IN THE UPPER ABDOMEN. WAS MEDICATED WITH MORPHINE IV PUSH ORDERED. WILL CONTINUE TO MONITOR.
--- NOTE | 2017-02-25 13:55 | NUR ---
DR. MALLOY MADE AWARE VIA PAGE GATE OF NEG TROP RESULT REQUESTED BY
[2017-02-25 14:00] VITALS: BP 131/71
--- NOTE | 2017-02-25 16:34 | NUR ---
Initial Nutrition Assessment Dx: COPD exacerbation PMHx: Depression, Anxiety, PTSD, Traumatic brain injury, Diabetes, Sleep Apnea, Diverticulitis, Arthritis Cholecystitis PSHx: Cholecystectomy (1997), Hernia Repair (Hiatel 1999), Other (Rt rotator cuff repair), L carpal tunnel 2010, LEft ACL 2010, Cataracts bilateral, 2013, 2015 Labs: BG 125, Alb 3.2L, TG 195H, A1C 6.6H, H/H 12.8/40L Meds: Antivert, Colace, D50%, Flonase, Glucotrol, Humulin, Lipitor, Lupressor, Mucinex, Nitrostat, Norvasc, Oyster shell calcium, PriLosec, Solumedrol, Theragran, Zofran, Diet: CCHO, 60g PO Intake: (02/25) B: 100% Ht: 72in Wt: 404lb BMI: 54.8kg/m2 (Obese Class III) IBW: 178lb %IBW: 227% Adj. BW: 234lb UBW: 400lb Age: 56 y/o M Food Allergies: No Skin: Varinder 21 Edema: None noted GI: Last BM 02/24 Consult: Super morbid obesity; Moderate malnutrition Pt admitted with acute respiratory failure secondary to COPD exacerbation as per H&P notes. Per progress note pt is on CPAP at home and Dr. Romo was consulted for possibly starting BiPap. equine intern interviewed pt who was alert and sitting up in bed. Pt denied wt and appetite change, and stated satisfied with current diet. Problems with: N: No V:No D: No C: Yes (Per pt this is normal due to medications) Problems with: Chewing: No Swallowing: No Current Appetite: Good Recent wt change: No %wt change: None Vitamin/Supplement use: Multivitamin Diet at home: Diabetic Physical activity: Walks every day between 3-4 hours with breaks in between and with oxygen tank Education: equine intern offered DM diet and healthy weight education, pt refused handout information due to already having handouts at home. Pt states he is aware of DM diet guidelines and plans to attend DM diet class provided by hospital. Pt states no SOB during meal times and has no difficulty eating, daughter prepares meals at home. Estimated Nutritional Needs Based on: Adjusted Body Weight 234lb, 106kg Energy: 2650-3180kcal/d (25-30kcal/kg for Maintenance) Protein: 85-106g/d (0.8-1.0g/kg for Maintenance) Fluid: 2650ml/d (25 ml/kg) or per doctor Nutrition Diagnosis: Obesity Class III related to possible excessive energy-protein intakes prior to admission as evidenced by BMI 54.8kg/m2 and 227% of IBW. Intervention: 1. Continue CCHO 60g, per MD 2. equine intern attempted DM diet and healthy weight education, pt refused Monitor/ Evaluate: Goal: PO intake to meet at least 75% of estimated needs Monitor: PO intake, Labs (BG), GI function F/U in 7 days as Low risk 03/04/17
--- NOTE | 2017-02-25 16:35 | NUR ---
1. Continue CCHO 60g, per MD 2. project management intern attempted DM diet and healthy weight education, pt refused
[2017-02-25 17:58] VITALS: BP 113/64
--- NOTE | 2017-02-25 18:19 | NUR ---
PT RESTING IN BED WITH NO APPARENT SIGN OF DISTRESS. FAMILY PRESENT AT BEDSIDE. ON TELE 18 WITH SR. RESPIRATIONS EQUAL AND SLIGHTLY LABORED BILAT. ON 3L O2 VIA NC WITH 95% SAT. DENIES PAIN AT THIS TIME. RIGHT HAND IV WNL. SKIN W/D/I. CALL LIGHT IN REACH. PT EDUCATED ON USING CALL LIGHT WHEN NEEDING ASSISTANCE.
[2017-02-25 18:30] LABS: RED BLOOD CELLS 4.43 M/mm3 (4.52-5.90)
[2017-02-25 19:08] LABS: IRON 50 ug/dL (65-170)
[2017-02-25 19:09] LABS: TOTAL IRON BINDING CAPACITY 452 ug/dL (250-450)
--- NOTE | 2017-02-25 19:30 | NUR ---
RECEIVED REPORT FROM JARRETT CASTANEDA. PT RESTING IN BED COMFORTABLY IN NO ACUTE DISTRESS OR DISCOMFORT. AAOX4. DENIES OF SHERMAN/DIZZINESS. ON TELE MON 18 ST. DENIES OF ANY CHEST DISCOMFORT. PER PULSES MOD. TRACE EDEMA ON BLE. IN 3 L NC WITH SAT OF 94%. MILD SOB ON EXERTION. LUNGS DIMS. BS SOFT AND OBESE. VOIDS FREELY. AMBULATES STEADILY. DENIES OF ANY PAIN AT THIS TIME. IV ON RH PATENT. SAFETY MEASURES ENSURED. FAMILY IS ON THE BEDSIDE. INSTRUCTED PT AND FAMILY TO CALL FOR ANY NEEDS/ASSISTANCE. CALL LIGHT WITHIN REACH. WILL CONT TO MONITOR PT.
[2017-02-25 22:00] VITALS: BP 124/69
--- NOTE | 2017-02-26 05:06 | NUR ---
PT SLEPT COMFORTABLY THROUGH OUT THE NIGHT. WAS IN NO ACUTE DISTRESS OR DISCOMFORT. UTILIZED CPAP WHILE ASLEEP. SAFETY MEASURES WERE ENSURED. CALL LIGHT WITHIN REACH.
[2017-02-26 06:11] LABS: CALCIUM 9.7 mg/dL (8.5-10.1); CARBON DIOXIDE 29.9 mmol/L (21-32); CHLORIDE SERUM 102 mmol/L (98-107); CREATININE SERUM 1.1 mg/dL (0.7-1.3); GFR1 > 60 mL/min; GLUCOSE SERUM 220 mg/dL (74-106); POTASSIUM SERUM 4.8 mmol/L (3.5-5.1); SODIUM SERUM 135 mmol/L (136-145)
[2017-02-26 06:18] LABS: PLATELET COUNT 241 x10^3mcL (130-400)
--- NOTE | 2017-02-26 06:45 | NUR ---
NOTIFIED BY LAB PT'S WBC ELEVATED TO 13.7, MADE DR MOSLEY AWARE.
[2017-02-26 06:47] LABS: BASOPHIL % 0 % (0-2); RED CELL DISTRIBUTION WIDTH 16.3 % (11.5-14.5)
[2017-02-26 06:53] VITALS: BP 128/74
--- NOTE | 2017-02-26 07:45 | NUR ---
RC'D PT A/A/O/X4 RESTING IN BED WITH NO APPRENT SIGNS OF DISTRESS. ON TELE 18 WITH SR. DENIES CHEST PRESSURE/PAIN AT THIS TIME. PALP PULSES, EDEMA NOTED ON BLE. ON 3L O2 VIA NC WITH 94%. DENIES DIZZINESS AT THIS TIME. ABDOMEN OBESE AND NONTENDER. ACTIVE BS X4. VOIDS FREELY, DENIES BURNING. AMBULATORY WITH BRP. SKIN W/D/I. DENIES PAIN AT THIS TIME. RFA SALINE LOCK, WNL. PT IS CALM AND COOPERATIVE. CALL LIGHT IN REACH. BED IN LOW POSITION. WILL CONTINUE TO MONITOR.
[2017-02-26 09:16] VITALS: BP 116/65
[2017-02-26 13:37] VITALS: BP 124/58
--- NOTE | 2017-02-26 13:42 | NUR ---
NOTIFIED PT THAT VESICARE NOT AVAILABLE. INQUIRED IF PTS HOME MEDICATION COULD BE BROUGHT IN BY FAMILY. PT STATED THAT HE WILL CONTINUE MEDICATION WHEN HE RETURNS HOME.
--- NOTE | 2017-02-26 15:30 | NUR ---
DR. MALLOY MADE AWARE THAT PT VESICARE HAD NOT BEEN STARTED D/T MED BEING NONFORMULARY. PT DID NOT WANT TO BRING HOME MEDICATION AND STATED HE WILL RESUME WHEN HE GOES HOME. NO NEW ORDERS AT THIS TIME.
[2017-02-26 17:54] VITALS: BP 93/52
--- NOTE | 2017-02-26 18:10 | NUR ---
PT RESTING IN BED WITH NO APPARENT SIGNS OF DISTRESS. ON TELE 18 WITH SR. DENIES CHEST PRESSURE/PAIN AT THIS TIME. RESPIRATIONS EQUAL AND UNLABORED BILAT. ON 3L 02 WITH 95%. PT COMPLAINED OF PAIN 6/10 TO THE LLE. MEDICATED WITH MORPHINE IVP PER MD ORDER. RFA IV, WNL. CALL LIGHT IN REACH. BED IN LOW POSITION.
--- NOTE | 2017-02-26 19:58 | NUR ---
RECEIVED REPORT FROM JARRETT FAULKNER. PT RESTING COMFORTABLY IN BED IN NO ACUTE DISTRESS OR DISCOMFORT. AAOX4. ON TELE MON 18 SR. DENIES OF ANY CHEST DISCOMFORT. PER PULSES MOD. TRACE EDEMA ON BLE. ON 3 L NC WITH SAT OF 97%. BREATHING EVENLY AND UNLABORED. NO SOB NOTED. LUNGS CTA. BS ACTIVE. ABD SOFT AND OBESE. VOIDS FREELY. GEN WEAKNESS. DENIES OF ANY PAIN. IV ON RFA PATENT. SAFETY MEASURES ENSURED. INSTRUCTED PT TO CALL FOR ANY NEEDS/ASSISTANCE. CALL LIGHT WITHIN REACH. WILL CONT TO MONITOR PT.
[2017-02-26 21:04] VITALS: BP 126/54
--- NOTE | 2017-02-27 05:04 | NUR ---
PT SLEPT COMFORTABLY THROUGH OUT THE NIGHT. WAS IN NO ACUTE DISTRESS OR DISCOMFORT. SAFETY MEASURES WERE ENSURED. CALL LIGHT WITHIN REACH.
[2017-02-27 06:06] VITALS: BP 130/67
[2017-02-27 06:42] LABS: BASOPHIL % 0.2 % (0-2); PLATELET COUNT 210 x10^3mcL (130-400)
[2017-02-27 06:51] LABS: CALCIUM 9.4 mg/dL (8.5-10.1); CARBON DIOXIDE 29.9 mmol/L (21-32); CHLORIDE SERUM 100 mmol/L (98-107); CREATININE SERUM 1.1 mg/dL (0.7-1.3); GFR1 > 60 mL/min; GLUCOSE SERUM 212 mg/dL (74-106); MAGNESIUM 2.3 mg/dL (1.8-2.4); PHOSPHOROUS 4.4 mg/dL (2.5-4.9); POTASSIUM SERUM 4.4 mmol/L (3.5-5.1); SODIUM SERUM 136 mmol/L (136-145)
[2017-02-27 07:04] LABS: RED CELL DISTRIBUTION WIDTH 16.9 % (11.5-14.5)
--- NOTE | 2017-02-27 07:15 | NUR ---
RECEIVED Pt. AAOX4, RESPIRATIONS EVEN AND UNLABORED O2 3L/MIN NC. DENIES SOB/DYSPNEA. NO DISTRESS NOTED. DENIES PAIN/DISCOMFORT AT THIS TIME. IV AT RIGHT FOREARM SALINE LOCKED. TELE IN PLACE HR 81. BED LOW/LOCKED. CALL LIGHT IN REACH.
[2017-02-27] MEDS ORDERED: MEDDP PO (07:37)
--- NOTE | 2017-02-27 08:15 | NUR ---
MADE DR. SNEED AND MEDICINE TEAM, Pt. POSSIBLE DISCHARGE TODAY AND AGREED WITH PLAN OF CARE.
[2017-02-27 10:33] VITALS: BP 134/77
--- NOTE | 2017-02-27 13:48 | NUR ---
Pt. AAOX4, ALL RX AND DISCHARGE INSTRUCTIONS EXPLAINED, ALSO INSTRUCTED TO ATTEND FOLLOW UP APPOINTMENT WITH DR. MILAN ON 03/02/17 AT 10 AM AND Pt. VERBALIZED UNDERSTANDING.
--- NOTE | 2017-02-27 14:05 | NUR ---
Pt. AAOX4, RESPIRATIONS EVEN AND UNLABORED WITH Pt, PERSONAL PORTABLE O2 3L/MIN NC. DENIES SOB/DYSPNEA AND DENIES PAIN/DISCOMFORT. NO DISTRESS NOTED IV AT RIGHT FOREARM REMOVED WITH CATH INTACT, PRESSURE APPLIED NO BLEEDING NOTED. TELE 18 RETURNED. Pt. LEFT WITH ALL BELONGINGS TRANSPORTED BY Pt. DAUGHTER AND SON IN LAW VIA PRIVATE AUTO.
== END 2017-02-27 14:05 | disposition home or self-care (01) | DRG 133 ==
LOC: ED 15:21 → DU 17:45
PROVIDERS: Emergency Medicine; Family Medicine; ADMIT Family Medicine
PROC: 5A09457 Assistance with Respiratory Ventilation, 24-96 Consecutive Hours, Continuous Positive Airway Pressure (ICD-10-PCS; principal; 2017-02-25)
DX: J96.21 Acute and chronic respiratory failure with hypoxia (principal); D68.69 Other thrombophilia; E44.0 Moderate protein-calorie malnutrition; E11.65 Type 2 diabetes mellitus with hyperglycemia; E11.42 Type 2 diabetes mellitus with diabetic polyneuropathy; I11.0 Hypertensive heart disease with heart failure; I50.30 Unspecified diastolic (congestive) heart failure; J44.1 Chronic obstructive pulmonary disease with (acute) exacerbation; F43.10 Post-traumatic stress disorder, unspecified; E66.01 Morbid (severe) obesity due to excess calories; M19.90 Unspecified osteoarthritis, unspecified site; D64.9 Anemia, unspecified; K21.9 Gastro-esophageal reflux disease without esophagitis; E78.1 Pure hyperglyceridemia; G47.33 Obstructive sleep apnea (adult) (pediatric); F32.9 Major depressive disorder, single episode, unspecified; F41.9 Anxiety disorder, unspecified; Z79.84 Long term (current) use of oral hypoglycemic drugs; Z68.43 Body mass index [BMI] 50.0-59.9, adult; Z99.81 Dependence on supplemental oxygen; Z87.820 Personal history of traumatic brain injury; Z88.1 Allergy status to other antibiotic agents; Z79.899 Other long term (current) drug therapy; Z90.49 Acquired absence of other specified parts of digestive tract; Z98.42 Cataract extraction status, left eye; Z98.41 Cataract extraction status, right eye; Z79.82 Long term (current) use of aspirin; Z82.5 Family history of asthma and other chronic lower respiratory diseases; Z80.3 Family history of malignant neoplasm of breast; Z80.42 Family history of malignant neoplasm of prostate; Z80.49 Family history of malignant neoplasm of other genital organs; Z91.14 Patient's other noncompliance with medication regimen; Z81.8 Family history of other mental and behavioral disorders; Z87.891 Personal history of nicotine dependence
CPT/HCPCS: 36600; 83880; 84439; 94150; J1644; J1940; J2270; J2920; J2930; J7512; J7613; J7620; J7644; J8597; Q0092

== ENCOUNTER 2017-04-12 12:51 | Emergency (ER) | payer OTHER ==
[~2017-04-12] VITALS: Ht 182.9 cm; Wt 182.3 kg
[2017-04-12 15:28] VITALS: BP 141/60
== END 2017-04-12 15:28 | disposition home or self-care (01) ==
LOC: ED 12:51
DX: M54.12 Radiculopathy, cervical region (principal); M79.602 Pain in left arm; J44.9 Chronic obstructive pulmonary disease, unspecified; E78.00 Pure hypercholesterolemia, unspecified; E11.9 Type 2 diabetes mellitus without complications; I10 Essential (primary) hypertension; E66.01 Morbid (severe) obesity due to excess calories
CPT/HCPCS: Q0092

== ENCOUNTER 2017-04-22 12:19 | Inpatient (IN) | payer OTHER ==
[~2017-04-22] VITALS: Ht 182.9 cm; Wt 181.5 kg
[2017-04-22 15:04] LABS: BASOPHIL % 0.4 % (0-2); PLATELET COUNT 271 x10^3mcL (130-400)
[2017-04-22 15:06] LABS: RED CELL DISTRIBUTION WIDTH 17.4 % (11.5-14.5)
[2017-04-22 15:09] LABS: CALCIUM 9.1 mg/dL (8.5-10.1); CARBON DIOXIDE 27.8 mmol/L (21-32); CREATININE SERUM 1.4 mg/dL (0.7-1.3); POTASSIUM SERUM 4.7 mmol/L (3.5-5.1)
[2017-04-22 15:13] LABS: ALBUMIN 3.5 g/dL (3.4-5.0); BILIRUBIN TOTAL 0.7 mg/dL (0.20-1.00); TOTAL PROTEIN, SERUM 6.9 g/dL (6.4-8.2)
[2017-04-22 16:02] LABS: microscopic required? NO
[2017-04-22] MEDS ORDERED: ANAPROX DS550 MG PO (16:09)
[2017-04-22] MEDS ORDERED: INVOKANA300 MG PO (16:09)
[2017-04-22] MEDS ORDERED: INCRUSE EL62.5 MCG/A IH (16:11)
[2017-04-22] MEDS ORDERED: PROBIOTIC1 EAC1 PO (16:12)
[2017-04-22] MEDS ORDERED: SENTRY TABLET1 EACH PO (16:12)
[2017-04-22 16:14] LABS: UA SPECIFIC GRAVITY 1.015 (1.005-1.035); urine erythrocyte NEGATIVE (NEGATIVE)
[2017-04-22] MEDS ORDERED: ZESTRIL20 MG PO (16:14)
[2017-04-22] MEDS ORDERED: PROZ20 PO (16:15)
[2017-04-22] MEDS ORDERED: TRAMADOL HCL50 MG PO (16:16)
[2017-04-22] MEDS ORDERED: LASIX20 MG PO (16:16)
[2017-04-22] MEDS ORDERED: VENTOLIN H0.09 MG/A1 INH (16:17)
[2017-04-22] MEDS ORDERED: NITROSTAT0.4 MG SL (16:18)
[2017-04-22 16:42] LABS: AMPHETAMINE QUAL UR NONE DETECTED (NEG <=1000)
[2017-04-22 16:51] LABS: CHOLESTEROL/HDL RATIO 3.5; MAGNESIUM 2.5 mg/dL (1.8-2.4); PHOSPHOROUS 2.7 mg/dL (2.5-4.9)
[2017-04-22 17:02] LABS: FREE T4 0.72 ng/dL (0.76-1.46); FREE THYROXINE INDEX 2.4 ug/dL (1.4-4.5); T4(THYROXINE) 7.4 ug/dL (4.7-13.3)
[2017-04-22 17:13] VITALS: BP 105/68
[2017-04-22 18:31] LABS: T3 TOTAL 0.82 ng/mL
[2017-04-22 21:48] VITALS: BP 101/51
[2017-04-23] VITALS (7 sets, daily range): BP systolic 97–116; BP diastolic 47–70
[2017-04-23 06:35] LABS: BASOPHIL % 0.3 % (0-2); PLATELET COUNT 261 x10^3mcL (130-400)
[2017-04-23 06:41] LABS: RED CELL DISTRIBUTION WIDTH 17.4 % (11.5-14.5)
[2017-04-23 07:22] LABS: CALCIUM 8.8 mg/dL (8.5-10.1); CARBON DIOXIDE 32.4 mmol/L (21-32); CHLORIDE SERUM 104 mmol/L (98-107); CREATININE SERUM 1.3 mg/dL (0.7-1.3); GFR1 > 60 mL/min; GLUCOSE SERUM 123 mg/dL (74-106); MAGNESIUM 2.4 mg/dL (1.8-2.4); POTASSIUM SERUM 4.9 mmol/L (3.5-5.1); SODIUM SERUM 142 mmol/L (136-145)
[2017-04-24 04:41] VITALS: BP 115/65
[2017-04-24 06:08] LABS: BASOPHIL % 0.3 % (0-2); PLATELET COUNT 260 x10^3mcL (130-400)
[2017-04-24 06:21] LABS: CARBON DIOXIDE 31.9 mmol/L (21-32); CHLORIDE SERUM 103 mmol/L (98-107); CREATININE SERUM 1.3 mg/dL (0.7-1.3); GFR1 > 60 mL/min; GLUCOSE SERUM 131 mg/dL (74-106); MAGNESIUM 2.5 mg/dL (1.8-2.4); PHOSPHOROUS 3.3 mg/dL (2.5-4.9); POTASSIUM SERUM 4.9 mmol/L (3.5-5.1); SODIUM SERUM 139 mmol/L (136-145)
[2017-04-24 06:42] LABS: RED CELL DISTRIBUTION WIDTH 17.2 % (11.5-14.5)
[2017-04-24 09:52] VITALS: BP 132/70
[2017-04-24 14:12] VITALS: BP 149/120
[2017-04-24 16:40] VITALS: BP 93/50
[2017-04-24 21:31] VITALS: BP 95/52
[2017-04-25 04:37] VITALS: BP 90/89
[2017-04-25 06:31] LABS: BASOPHIL % 0.3 % (0-2); PLATELET COUNT 271 x10^3mcL (130-400)
[2017-04-25 06:38] LABS: RED CELL DISTRIBUTION WIDTH 17.7 % (11.5-14.5)
[2017-04-25 06:52] LABS: CALCIUM 8.7 mg/dL (8.5-10.1); CARBON DIOXIDE 29.9 mmol/L (21-32); CREATININE SERUM 1.7 mg/dL (0.7-1.3); MAGNESIUM 2.6 mg/dL (1.8-2.4); PHOSPHOROUS 3.4 mg/dL (2.5-4.9); POTASSIUM SERUM 5.4 mmol/L (3.5-5.1)
[2017-04-25 09:51] VITALS: BP 100/52
[2017-04-25 12:05] VITALS: BP 99/38
[2017-04-25 21:00] VITALS: BP 111/54
[2017-04-26 06:29] LABS: BASOPHIL % 0.4 % (0-2); PLATELET COUNT 290 x10^3mcL (130-400); RED CELL DISTRIBUTION WIDTH 17.5 % (11.5-14.5)
[2017-04-26 06:32] VITALS: BP 121/70
[2017-04-26 06:54] LABS: CALCIUM 8.8 mg/dL (8.5-10.1); CARBON DIOXIDE 32.4 mmol/L (21-32); CHLORIDE SERUM 106 mmol/L (98-107); CREATININE SERUM 1.3 mg/dL (0.7-1.3); GFR1 > 60 mL/min; GLUCOSE SERUM 97 mg/dL (74-106); POTASSIUM SERUM 4.6 mmol/L (3.5-5.1); SODIUM SERUM 143 mmol/L (136-145)
[2017-04-26 06:55] LABS: MAGNESIUM 2.1 mg/dL (1.8-2.4)
[2017-04-26] MEDS ORDERED: NORCO1 TA2 PO (08:25)
[2017-04-26] MEDS ORDERED: COLACE100 MG PO (08:26)
[2017-04-26 09:00] VITALS: BP 141/77
[2017-04-26 09:29] VITALS: BP 141/77
== END 2017-04-26 10:38 | disposition home or self-care (01) | DRG 246 ==
LOC: ED 12:19 → DU 15:58
PROVIDERS: Emergency Medicine; Internal Medicine Gastroenterology; Student in an Organized Health Care Education/Training Program; ADMIT Family Medicine
PROC: 0DB68ZX Excision of Stomach, Via Natural or Artificial Opening Endoscopic, Diagnostic (ICD-10-PCS; principal; 2017-04-24 11:30)
PROC: 0DBL8ZX Excision of Transverse Colon, Via Natural or Artificial Opening Endoscopic, Diagnostic (ICD-10-PCS; 2017-04-25)
DX: K55.9 Vascular disorder of intestine, unspecified (principal); N17.0 Acute kidney failure with tubular necrosis; I95.1 Orthostatic hypotension; K29.70 Gastritis, unspecified, without bleeding; T39.395A Adverse effect of other nonsteroidal anti-inflammatory drugs [NSAID], initial encounter; K57.30 Diverticulosis of large intestine without perforation or abscess without bleeding; J44.9 Chronic obstructive pulmonary disease, unspecified; E11.65 Type 2 diabetes mellitus with hyperglycemia; I10 Essential (primary) hypertension; E87.0 Hyperosmolality and hypernatremia; E87.5 Hyperkalemia; D64.9 Anemia, unspecified; F41.9 Anxiety disorder, unspecified; F32.9 Major depressive disorder, single episode, unspecified; E66.01 Morbid (severe) obesity due to excess calories; Z68.43 Body mass index [BMI] 50.0-59.9, adult; Z99.81 Dependence on supplemental oxygen; Y92.009 Unspecified place in unspecified non-institutional (private) residence as the place of occurrence of the external cause
CPT/HCPCS: 43235; 45380; 82962; 83880; 84439; 87046; 87046-59; J1200; J1610; J1885; J2250; J2270; J2310; J2405; J2543; J2550; J3010; J3490; J7030; J7613; J7626; J7644; J8597; Q0092

== ENCOUNTER 2017-05-19 17:19 | Inpatient (IN) | payer OTHER ==
[~2017-05-19] VITALS: Ht 182.9 cm; Wt 181.9 kg
[~2017-05-19 17:19] MED LIST changes: +ANAPROX DS550 MG PO; +COLACE100 MG PO; +INVOKANA300 MG PO; +LASIX20 MG PO; +NITROSTAT0.4 MG SL; +NORCO1 TA2 PO; +PROBIOTIC1 EAC1 PO; +PROZ20 PO; +TRAMADOL HCL50 MG PO; +ZESTRIL20 MG PO
[2017-05-19 18:19] LABS: BASOPHIL % 0.2 % (0-2); PLATELET COUNT 231 x10^3mcL (130-400)
[2017-05-19 18:27] LABS: CALCIUM 9.6 mg/dL (8.5-10.1); CARBON DIOXIDE 36.6 mmol/L (21-32); CREATININE SERUM 1.5 mg/dL (0.7-1.3)
[2017-05-19 18:31] LABS: ALBUMIN 3.6 g/dL (3.4-5.0); BILIRUBIN TOTAL 0.3 mg/dL (0.20-1.00); TOTAL PROTEIN, SERUM 7.2 g/dL (6.4-8.2)
[2017-05-19 18:32] LABS: RED CELL DISTRIBUTION WIDTH 17.5 % (11.5-14.5)
[2017-05-19 21:14] VITALS: BP 126/65
[2017-05-20 00:54] VITALS: BP 113/60
[2017-05-20 05:43] LABS: CALCIUM 9.5 mg/dL (8.5-10.1); CARBON DIOXIDE 30.1 mmol/L (21-32); CREATININE SERUM 1.6 mg/dL (0.7-1.3); POTASSIUM SERUM 5.1 mmol/L (3.5-5.1)
[2017-05-20 05:46] LABS: PLATELET COUNT 220 x10^3mcL (130-400)
[2017-05-20 05:50] LABS: BASOPHIL % 0 % (0-2); RED CELL DISTRIBUTION WIDTH 17.4 % (11.5-14.5)
[2017-05-20 05:55] VITALS: BP 101/64
[2017-05-20 09:19] VITALS: BP 103/43
[2017-05-20 12:40] VITALS: BP 107/55
[2017-05-20 17:05] VITALS: BP 96/38
[2017-05-20 21:05] VITALS: BP 104/42
[2017-05-21 04:35] VITALS: BP 111/56
[2017-05-21 06:28] LABS: BASOPHIL % 0.2 % (0-2); PLATELET COUNT 243 x10^3mcL (130-400)
[2017-05-21 06:40] LABS: RED CELL DISTRIBUTION WIDTH 17.9 % (11.5-14.5)
[2017-05-21 06:54] LABS: CALCIUM 9.1 mg/dL (8.5-10.1); CARBON DIOXIDE 27.7 mmol/L (21-32); CREATININE SERUM 1.5 mg/dL (0.7-1.3); MAGNESIUM 2.5 mg/dL (1.8-2.4); PHOSPHOROUS 3.5 mg/dL (2.5-4.9)
[2017-05-21 08:45] VITALS: BP 108/52
[2017-05-21] MEDS ORDERED: LEVAQUIN750 MG PO (10:19)
[2017-05-21] MEDS ORDERED: MEDDP PO (11:21)
[2017-05-21 11:53] VITALS: BP 108/52
[2017-05-21 12:18] VITALS: BP 105/47
== END 2017-05-21 13:16 | disposition home or self-care (01) | DRG 140 ==
LOC: ED 17:19 → DU 05-20 00:05
PROVIDERS: Emergency Medicine; ADMIT Family Medicine
DX: J44.1 Chronic obstructive pulmonary disease with (acute) exacerbation (principal); D68.69 Other thrombophilia; Z68.43 Body mass index [BMI] 50.0-59.9, adult; E11.65 Type 2 diabetes mellitus with hyperglycemia; E66.01 Morbid (severe) obesity due to excess calories; F41.8 Other specified anxiety disorders; I10 Essential (primary) hypertension; Z79.84 Long term (current) use of oral hypoglycemic drugs; K64.9 Unspecified hemorrhoids; F32.9 Major depressive disorder, single episode, unspecified
CPT/HCPCS: 36600; 82962; 83880; 90658; J2270; J2405; J2543; J2930; J7030; J7613; J7620; J7644; Q0092

== ENCOUNTER 2017-06-30 18:48 | Inpatient (IN) | payer OTHER ==
[~2017-06-30] VITALS: Ht 182.9 cm; Wt 179.0 kg
[~2017-06-30 18:48] MED LIST changes: +LEVAQUIN750 MG PO
[2017-06-30 20:57] LABS: CALCIUM 9.1 mg/dL (8.5-10.1); CARBON DIOXIDE 35.2 mmol/L (21-32); CHLORIDE SERUM 100 mmol/L (98-107); CREATININE SERUM 1.3 mg/dL (0.7-1.3); GFR1 > 60 mL/min; GLUCOSE SERUM 168 mg/dL (74-106); POTASSIUM SERUM 4.1 mmol/L (3.5-5.1); SODIUM SERUM 139 mmol/L (136-145)
[2017-06-30 21:01] LABS: ALKALINE PHOSPHATASE 108 U/L (46-116); ALT/SGPT 33 U/L (16-63); AST/SGOT 17 U/L (15-37); BILIRUBIN TOTAL 0.44 mg/dL (0.20-1.00); TOTAL PROTEIN, SERUM 6.8 g/dL (6.4-8.2)
[2017-06-30 21:04] LABS: ALBUMIN 3.3 g/dL (3.4-5.0)
[2017-06-30 21:07] LABS: BASOPHIL % 0.2 % (0-2); PLATELET COUNT 331 x10^3mcL (130-400)
[2017-06-30 21:14] LABS: RED CELL DISTRIBUTION WIDTH 18.5 % (11.5-14.5)
[2017-06-30 22:17] VITALS: BP 100/75
[2017-06-30] MEDS ORDERED: GLIPIZIDE5 M2 PO (22:17)
[2017-06-30] MEDS ORDERED: COLACE100 MG PO (22:17)
[2017-06-30] MEDS ORDERED: PRE30 PO (22:18)
[2017-06-30] MEDS ORDERED: ASPIR 8181 MG PO (22:18)
[2017-06-30] MEDS ORDERED: VESICARE10 M1 PO (22:18)
[2017-06-30] MEDS ORDERED: CALCIUM WITH M1 EACH PO (22:19)
[2017-06-30] MEDS ORDERED: GABAPENTIN600 M1 PO (22:19)
[2017-06-30] MEDS ORDERED: BREO ELLIPTA1 PO1 (22:20)
[2017-06-30] MEDS ORDERED: INCRUSE EL62.5 MCG/A IH (22:21)
[2017-06-30] MEDS ORDERED: ALBUTEROL SULFAT0.51 IH (22:22)
[2017-06-30] MEDS ORDERED: FLE10 PO (22:22)
[2017-06-30] MEDS ORDERED: ALBUTEROL S2 MG/5 ML PO (22:22)
[2017-06-30 22:23] LABS: CHOLESTEROL/HDL RATIO 3.1; PHOSPHOROUS 4.3 mg/dL (2.5-4.9)
[2017-06-30] MEDS ORDERED: SEROQUEL100 MG PO (22:23)
[2017-06-30] MEDS ORDERED: SENTRY TABLET1 EACH PO (22:23)
[2017-06-30] MEDS ORDERED: MECLIZINE HYDRO25 M1 PO (22:23)
[2017-06-30] MEDS ORDERED: LORAZEPAM0.5 MG PO (22:23)
[2017-06-30] MEDS ORDERED: ZESTRIL20 MG PO ×2 (22:24→22:25)
[2017-06-30] MEDS ORDERED: PROBIOTIC1 EAC1 PO (22:24)
[2017-06-30] MEDS ORDERED: PROZ20 PO ×2 (22:24→22:25)
[2017-06-30] MEDS ORDERED: LASIX20 MG PO (22:25)
[2017-06-30] MEDS ORDERED: TRAMADOL HCL50 MG PO (22:25)
[2017-06-30] MEDS ORDERED: LOVASTATIN20 MG PO (22:25)
[2017-06-30] MEDS ORDERED: TOPROL XL25 MG PO (22:26)
[2017-06-30] MEDS ORDERED: VENTOLIN H0.09 MG/A1 INH (22:26)
[2017-06-30] MEDS ORDERED: ATROVENT H0.017 MG/1 INH (22:26)
[2017-06-30] MEDS ORDERED: BUS10 PO (22:27)
[2017-06-30] MEDS ORDERED: NITROGLYCERIN0.4 MG SL (22:27)
[2017-06-30 22:31] LABS: T3 TOTAL 0.97 ng/mL
[2017-06-30 22:35] LABS: FREE T4 0.84 ng/dL (0.76-1.46); FREE THYROXINE INDEX 2.2 ug/dL (1.4-4.5); T4(THYROXINE) 6.5 ug/dL (4.7-13.3)
[2017-06-30 22:51] VITALS: BP 115/60
[2017-06-30 22:56] VITALS: Ht 182.9 cm; Wt 179.0 kg
[2017-07-01 04:08] LABS: BASOPHIL % 0.1 % (0-2); PLATELET COUNT 311 x10^3mcL (130-400)
[2017-07-01 04:14] LABS: RED CELL DISTRIBUTION WIDTH 18.6 % (11.5-14.5)
[2017-07-01 04:25] LABS: CALCIUM 9.6 mg/dL (8.5-10.1); CARBON DIOXIDE 35.5 mmol/L (21-32); CREATININE SERUM 1.5 mg/dL (0.7-1.3); MAGNESIUM 2.4 mg/dL (1.8-2.4); PHOSPHOROUS 4.4 mg/dL (2.5-4.9); POTASSIUM SERUM 5.2 mmol/L (3.5-5.1)
[2017-07-01 06:18] LABS: microscopic required? NO
[2017-07-01 07:32] LABS: UA SPECIFIC GRAVITY 1.025 (1.005-1.035); urine erythrocyte NEGATIVE (NEGATIVE)
[2017-07-01 08:01] LABS: AMPHETAMINE QUAL UR NONE DETECTED (NEG <=1000)
[2017-07-01 09:00] VITALS: BP 99/53
[2017-07-01 13:59] VITALS: BP 114/62
[2017-07-01 18:14] VITALS: BP 110/62
[2017-07-01 20:30] VITALS: BP 117/63
[2017-07-01 20:42] LABS: CALCIUM 9.1 mg/dL (8.5-10.1); CARBON DIOXIDE 30.8 mmol/L (21-32); CREATININE SERUM 1.4 mg/dL (0.7-1.3); POTASSIUM SERUM 4.3 mmol/L (3.5-5.1)
[2017-07-02 05:52] VITALS: BP 139/51
[2017-07-02 07:36] LABS: BASOPHIL % 0.1 % (0-2); PLATELET COUNT 297 x10^3mcL (130-400)
[2017-07-02 07:54] LABS: RED CELL DISTRIBUTION WIDTH 18.7 % (11.5-14.5)
[2017-07-02 08:09] LABS: CALCIUM 9.5 mg/dL (8.5-10.1); CARBON DIOXIDE 31.2 mmol/L (21-32); CHLORIDE SERUM 102 mmol/L (98-107); CREATININE SERUM 1.2 mg/dL (0.7-1.3); GFR1 > 60 mL/min; GLUCOSE SERUM 196 mg/dL (74-106); MAGNESIUM 2.4 mg/dL (1.8-2.4); PHOSPHOROUS 4.8 mg/dL (2.5-4.9); SODIUM SERUM 139 mmol/L (136-145)
[2017-07-02 09:47] VITALS: BP 133/64
[2017-07-02] MEDS ORDERED: MEDDP PO (09:56)
[2017-07-02] MEDS ORDERED: LEVAQUIN500 M1 PO (10:03)
[2017-07-02] MEDS ORDERED: LAC PO (10:04)
[2017-07-02] MEDS ORDERED: SINGULAIR10 MG PO (10:23)
[2017-07-02 12:50] VITALS: BP 133/64
== END 2017-07-02 13:21 | disposition home or self-care (01) | DRG 133 ==
LOC: ED 18:48 → DU 21:39
PROVIDERS: Emergency Medicine; ADMIT Family Medicine
DX: J96.21 Acute and chronic respiratory failure with hypoxia (principal); J69.0 Pneumonitis due to inhalation of food and vomit; D68.69 Other thrombophilia; E11.51 Type 2 diabetes mellitus with diabetic peripheral angiopathy without gangrene; J44.1 Chronic obstructive pulmonary disease with (acute) exacerbation; E11.65 Type 2 diabetes mellitus with hyperglycemia; Z99.81 Dependence on supplemental oxygen; M94.0 Chondrocostal junction syndrome [Tietze]; Z68.43 Body mass index [BMI] 50.0-59.9, adult; F31.30 Bipolar disorder, current episode depressed, mild or moderate severity, unspecified; E66.01 Morbid (severe) obesity due to excess calories; E78.5 Hyperlipidemia, unspecified; K52.9 Noninfective gastroenteritis and colitis, unspecified; F41.9 Anxiety disorder, unspecified; Z88.8 Allergy status to other drugs, medicaments and biological substances; Z90.49 Acquired absence of other specified parts of digestive tract; G90.8 Other disorders of autonomic nervous system; E87.5 Hyperkalemia
CPT/HCPCS: 36600; 82962; 83880; 84439; 94150; J1885; J2543; J2920; J2930; J3490; J7030; J7620; J7633

== ENCOUNTER 2017-07-16 19:48 | Inpatient (IN) | payer OTHER ==
[~2017-07-16] VITALS: Ht 182.9 cm; Wt 179.7 kg
[~2017-07-16 19:48] MED LIST changes: +ATROVENT H0.017 MG/1 INH; +BREO ELLIPTA1 PO1; +BUS10 PO; +CALCIUM WITH M1 EACH PO; +GLIPIZIDE5 M2 PO; +LEVAQUIN500 M1 PO; +LORAZEPAM0.5 MG PO; +NITROGLYCERIN0.4 MG SL; +SINGULAIR10 MG PO; +TOPROL XL25 MG PO
[2017-07-16 19:55] VITALS: Ht 182.9 cm; Wt 179.7 kg
[2017-07-16 21:28] LABS: BASOPHIL % 0.3 % (0-2); PLATELET COUNT 181 x10^3mcL (130-400)
[2017-07-16 21:34] LABS: CARBON DIOXIDE 32.4 mmol/L (21-32); CREATININE SERUM 1.4 mg/dL (0.7-1.3); POTASSIUM SERUM 4.8 mmol/L (3.5-5.1)
[2017-07-16 21:38] LABS: BILIRUBIN TOTAL 0.3 mg/dL (0.20-1.00); TOTAL PROTEIN, SERUM 6.4 g/dL (6.4-8.2)
[2017-07-16 21:39] LABS: ALBUMIN 3.2 g/dL (3.4-5.0)
[2017-07-16 21:51] LABS: RED CELL DISTRIBUTION WIDTH 18.5 % (11.5-14.5)
[2017-07-16 23:31] VITALS: BP 100/34
[2017-07-17 00:05] LABS: FREE T4 0.64 ng/dL (0.76-1.46); FREE THYROXINE INDEX 1.8 ug/dL (1.4-4.5); T4(THYROXINE) 5.9 ug/dL (4.7-13.3)
[2017-07-17 00:20] LABS: T3 TOTAL 0.98 ng/mL
[2017-07-17 04:40] VITALS: BP 113/51
[2017-07-17 05:27] LABS: microscopic required? NO
[2017-07-17 06:21] LABS: UA SPECIFIC GRAVITY 1.015 (1.005-1.035); urine erythrocyte NEGATIVE (NEGATIVE)
[2017-07-17 06:47] LABS: PLATELET COUNT 177 x10^3mcL (130-400)
[2017-07-17 07:04] LABS: CALCIUM 9.1 mg/dL (8.5-10.1); CARBON DIOXIDE 31.7 mmol/L (21-32); CHLORIDE SERUM 103 mmol/L (98-107); CREATININE SERUM 1.3 mg/dL (0.7-1.3); GFR1 > 60 mL/min; GLUCOSE SERUM 256 mg/dL (74-106); POTASSIUM SERUM 5.4 mmol/L (3.5-5.1); SODIUM SERUM 139 mmol/L (136-145)
[2017-07-17 07:05] LABS: AMPHETAMINE QUAL UR NONE DETECTED (NEG <=1000)
[2017-07-17 07:17] LABS: BASOPHIL % 0 % (0-2); RED CELL DISTRIBUTION WIDTH 18.9 % (11.5-14.5)
[2017-07-17 10:01] VITALS: BP 109/58
[2017-07-17 13:31] VITALS: BP 119/72
[2017-07-17 17:09] VITALS: BP 122/59
[2017-07-17 19:01] VITALS: BP 126/62
[2017-07-17 20:31] VITALS: BP 103/59
[2017-07-18 05:38] VITALS: BP 110/60
[2017-07-18 06:43] LABS: BASOPHIL % 0.3 % (0-2); PLATELET COUNT 180 x10^3mcL (130-400)
[2017-07-18 06:45] LABS: RED CELL DISTRIBUTION WIDTH 19.9 % (11.5-14.5)
[2017-07-18 07:40] LABS: CALCIUM 8.9 mg/dL (8.5-10.1); CREATININE SERUM 1.4 mg/dL (0.7-1.3); MAGNESIUM 2.3 mg/dL (1.8-2.4); PHOSPHOROUS 3.8 mg/dL (2.5-4.9)
[2017-07-18 08:06] LABS: CARBON DIOXIDE 23.4 mmol/L (21-32); POTASSIUM SERUM 4.5 mmol/L (3.5-5.1)
[2017-07-18 09:52] VITALS: BP 118/84
[2017-07-18 12:37] VITALS: BP 122/62
[2017-07-18 12:38] VITALS: BP 122/62
[2017-07-18] MEDS ORDERED: AZITHROMYCIN250 M1 PO (13:19)
[2017-07-18] MEDS ORDERED: LAC PO (13:20)
[2017-07-18] MEDS ORDERED: MEDDP PO (13:20)
== END 2017-07-18 14:40 | disposition home or self-care (01) | DRG 140 ==
LOC: ED 19:48 → DU 22:44
PROVIDERS: Emergency Medicine; ADMIT Family Medicine
DX: J44.1 Chronic obstructive pulmonary disease with (acute) exacerbation (principal); J96.21 Acute and chronic respiratory failure with hypoxia; J69.0 Pneumonitis due to inhalation of food and vomit; E11.22 Type 2 diabetes mellitus with diabetic chronic kidney disease; N18.3 Chronic kidney disease, stage 3 (moderate); Z68.43 Body mass index [BMI] 50.0-59.9, adult; E66.01 Morbid (severe) obesity due to excess calories; F31.30 Bipolar disorder, current episode depressed, mild or moderate severity, unspecified; I12.9 Hypertensive chronic kidney disease with stage 1 through stage 4 chronic kidney disease, or unspecified chronic kidney disease; E11.42 Type 2 diabetes mellitus with diabetic polyneuropathy; E11.65 Type 2 diabetes mellitus with hyperglycemia; E87.5 Hyperkalemia; E02 Subclinical iodine-deficiency hypothyroidism; E11.51 Type 2 diabetes mellitus with diabetic peripheral angiopathy without gangrene; M47.892 Other spondylosis, cervical region; G47.33 Obstructive sleep apnea (adult) (pediatric); N32.81 Overactive bladder; D63.1 Anemia in chronic kidney disease; E86.0 Dehydration; E44.0 Moderate protein-calorie malnutrition; Z87.820 Personal history of traumatic brain injury; Z80.3 Family history of malignant neoplasm of breast; Z80.42 Family history of malignant neoplasm of prostate; Z80.8 Family history of malignant neoplasm of other organs or systems; Z83.6 Family history of other diseases of the respiratory system; Z90.49 Acquired absence of other specified parts of digestive tract; Z98.41 Cataract extraction status, right eye
CPT/HCPCS: 83880; 84439; 94150; J1815; J2270; J2543; J2920; J2930; J7030; J7512; J7613; J7620; J7626; J7644; Q0092

== ENCOUNTER 2017-08-02 16:19 | Inpatient (IN) | payer OTHER ==
[~2017-08-02] VITALS: Ht 182.9 cm; Wt 165.2 kg
[~2017-08-02 16:19] MED LIST changes: +AZITHROMYCIN250 M1 PO
[2017-08-02 16:56] VITALS: Ht 182.9 cm; Wt 165.2 kg
[2017-08-02 20:55] LABS: BASOPHIL % 0.2 % (0-2); PLATELET COUNT 243 x10^3mcL (130-400)
[2017-08-02 20:57] LABS: RED CELL DISTRIBUTION WIDTH 20.5 % (11.5-14.5)
[2017-08-02 21:00] LABS: CALCIUM 9.5 mg/dL (8.5-10.1); CARBON DIOXIDE 32.5 mmol/L (21-32); CHLORIDE SERUM 101 mmol/L (98-107); CREATININE SERUM 1.2 mg/dL (0.7-1.3); GFR1 > 60 mL/min; GLUCOSE SERUM 249 mg/dL (74-106); POTASSIUM SERUM 4.6 mmol/L (3.5-5.1); SODIUM SERUM 141 mmol/L (136-145)
[2017-08-02 21:04] LABS: ALBUMIN 3.5 g/dL (3.4-5.0); ALKALINE PHOSPHATASE 81 U/L (46-116); ALT/SGPT 36 U/L (16-63); AST/SGOT 11 U/L (15-37); BILIRUBIN TOTAL 0.36 mg/dL (0.20-1.00); TOTAL PROTEIN, SERUM 6.7 g/dL (6.4-8.2)
[2017-08-02 21:25] LABS: ovalocyte/elliptocyte 1+; rbc morphology (normal/abnorm) ABNORMAL (NORMAL); tear drop cell (dacryocyte) 1+
[2017-08-02] MEDS ORDERED: TRAMADOL HCL50 MG PO (22:32)
[2017-08-02] MEDS ORDERED: LOVASTATIN40 MG PO (22:32)
[2017-08-02 23:59] VITALS: BP 119/77
[2017-08-03 03:52] LABS: MAGNESIUM 2.3 mg/dL (1.8-2.4); PHOSPHOROUS 3.6 mg/dL (2.5-4.9)
[2017-08-03 06:40] VITALS: BP 119/77
[2017-08-03 07:42] LABS: PLATELET COUNT 214 x10^3mcL (130-400)
[2017-08-03 07:44] LABS: BASOPHIL % 0 % (0-2); RED CELL DISTRIBUTION WIDTH 19.8 % (11.5-14.5)
[2017-08-03 07:53] LABS: CALCIUM 9.6 mg/dL (8.5-10.1); CARBON DIOXIDE 29.5 mmol/L (21-32); CHLORIDE SERUM 102 mmol/L (98-107); CREATININE SERUM 1.3 mg/dL (0.7-1.3); GFR1 > 60 mL/min; GLUCOSE SERUM 237 mg/dL (74-106); POTASSIUM SERUM 4.7 mmol/L (3.5-5.1); SODIUM SERUM 141 mmol/L (136-145)
[2017-08-03 10:24] VITALS: BP 99/60
[2017-08-03 13:51] VITALS: BP 123/64
[2017-08-03] MEDS ORDERED: ULT50 PO (14:31)
[2017-08-03 15:19] VITALS: BP 123/64
== END 2017-08-03 16:15 | disposition home or self-care (01) | DRG 133 ==
LOC: ED 16:19 → DU 22:20
PROVIDERS: Emergency Medicine; Student in an Organized Health Care Education/Training Program
DX: J96.21 Acute and chronic respiratory failure with hypoxia (principal); E11.22 Type 2 diabetes mellitus with diabetic chronic kidney disease; E11.40 Type 2 diabetes mellitus with diabetic neuropathy, unspecified; J44.1 Chronic obstructive pulmonary disease with (acute) exacerbation; N18.3 Chronic kidney disease, stage 3 (moderate); Z88.8 Allergy status to other drugs, medicaments and biological substances; Z68.43 Body mass index [BMI] 50.0-59.9, adult; E66.01 Morbid (severe) obesity due to excess calories; Z90.49 Acquired absence of other specified parts of digestive tract; F31.81 Bipolar II disorder; Z80.3 Family history of malignant neoplasm of breast; Z80.42 Family history of malignant neoplasm of prostate; Z80.0 Family history of malignant neoplasm of digestive organs; Z83.6 Family history of other diseases of the respiratory system; M94.0 Chondrocostal junction syndrome [Tietze]; I12.9 Hypertensive chronic kidney disease with stage 1 through stage 4 chronic kidney disease, or unspecified chronic kidney disease; E11.65 Type 2 diabetes mellitus with hyperglycemia; M47.9 Spondylosis, unspecified; D64.9 Anemia, unspecified
CPT/HCPCS: 83880; 85378; J2930; J7030; J7613; J7620; J7633; J7644

== ENCOUNTER 2017-08-14 15:41 | Emergency (ER) | payer OTHER ==
[~2017-08-14] VITALS: Ht 182.9 cm; Wt 179.2 kg
[~2017-08-14 15:41] MED LIST changes: +LOVASTATIN40 MG PO; +ULT50 PO
[2017-08-14 18:12] LABS: BASOPHIL % 0.3 % (0-2); PLATELET COUNT 212 x10^3mcL (130-400)
[2017-08-14 18:15] LABS: RED CELL DISTRIBUTION WIDTH 20.1 % (11.5-14.5)
[2017-08-14 18:21] LABS: CALCIUM 9.6 mg/dL (8.5-10.1); CARBON DIOXIDE 29.7 mmol/L (21-32); CREATININE SERUM 1.4 mg/dL (0.7-1.3); POTASSIUM SERUM 5.4 mmol/L (3.5-5.1)
[2017-08-14 18:26] LABS: BILIRUBIN TOTAL 0.5 mg/dL (0.20-1.00)
[2017-08-14 18:28] LABS: ALBUMIN 3.3 g/dL (3.4-5.0)
[2017-08-14 20:39] VITALS: BP 111/77
== END 2017-08-14 20:51 | disposition home or self-care (01) ==
LOC: ED 15:41
PROVIDERS: Emergency Medicine
DX: J44.9 Chronic obstructive pulmonary disease, unspecified (principal); I10 Essential (primary) hypertension; E11.9 Type 2 diabetes mellitus without complications; Z88.1 Allergy status to other antibiotic agents
CPT/HCPCS: 36415; J7613; J7644; Q0092

== ENCOUNTER 2017-09-07 16:32 | Emergency (ER) | payer OTHER ==
[~2017-09-07] VITALS: Ht 182.9 cm; Wt 176.9 kg
[2017-09-07 16:39] VITALS: Ht 182.9 cm; Wt 176.9 kg
[2017-09-07 19:38] LABS: BASOPHIL % 0.1 % (0-2); PLATELET COUNT 205 x10^3mcL (130-400)
[2017-09-07 19:48] LABS: CALCIUM 9.8 mg/dL (8.5-10.1); CARBON DIOXIDE 29.7 mmol/L (21-32); CHLORIDE SERUM 99 mmol/L (98-107); CREATININE SERUM 1.2 mg/dL (0.7-1.3); GFR1 > 60 mL/min; GLUCOSE SERUM 201 mg/dL (74-106); POTASSIUM SERUM 4.4 mmol/L (3.5-5.1); SODIUM SERUM 137 mmol/L (136-145)
[2017-09-07 19:49] LABS: RED CELL DISTRIBUTION WIDTH 20.4 % (11.5-14.5)
[2017-09-07 19:52] LABS: ALBUMIN 3.6 g/dL (3.4-5.0); ALKALINE PHOSPHATASE 68 U/L (46-116); ALT/SGPT 50 U/L (16-63); AST/SGOT 12 U/L (15-37); BILIRUBIN TOTAL 0.7 mg/dL (0.20-1.00); TOTAL PROTEIN, SERUM 6.9 g/dL (6.4-8.2)
[2017-09-07 23:27] VITALS: BP 128/75
== END 2017-09-07 23:00 | disposition home or self-care (01) ==
LOC: ED 16:32
PROVIDERS: Emergency Medicine
DX: J44.1 Chronic obstructive pulmonary disease with (acute) exacerbation (principal); E11.9 Type 2 diabetes mellitus without complications; I10 Essential (primary) hypertension; G47.30 Sleep apnea, unspecified; Z88.1 Allergy status to other antibiotic agents
CPT/HCPCS: 36415; J2930; J7613; J7644

== ENCOUNTER 2017-09-09 13:51 | Inpatient (IN) | payer OTHER ==
[~2017-09-09] VITALS: Ht 182.9 cm; Wt 179.6 kg
[2017-09-09] MEDS ORDERED: LOVASTATIN40 MG PO (14:25)
[2017-09-09] MEDS ORDERED: TIZANIDINE HCL4 MG PO (14:30)
[2017-09-09 15:15] LABS: microscopic required? NO
[2017-09-09 15:30] LABS: CHLORIDE SERUM 101 mmol/L (98-107); CREATININE SERUM 1.3 mg/dL (0.7-1.3); GFR1 > 60 mL/min; GLUCOSE SERUM 93 mg/dL (74-106); POTASSIUM SERUM 3.5 mmol/L (3.5-5.1); SODIUM SERUM 142 mmol/L (136-145)
[2017-09-09 15:37] LABS: BASOPHIL % 0.5 % (0-2); PLATELET COUNT 185 x10^3mcL (130-400)
[2017-09-09 15:39] LABS: ALKALINE PHOSPHATASE 61 U/L (46-116); ALT/SGPT 49 U/L (16-63); AST/SGOT 16 U/L (15-37); BILIRUBIN TOTAL 0.5 mg/dL (0.20-1.00)
[2017-09-09 15:42] LABS: RED CELL DISTRIBUTION WIDTH 20.5 % (11.5-14.5)
[2017-09-09 15:46] LABS: urine erythrocyte NEGATIVE (NEGATIVE)
[2017-09-09 15:51] LABS: ALBUMIN 3.2 g/dL (3.4-5.0); TOTAL PROTEIN, SERUM 6.1 g/dL (6.4-8.2)
[2017-09-09 16:13] LABS: MAGNESIUM 2.2 mg/dL (1.8-2.4); PHOSPHOROUS 3.4 mg/dL (2.5-4.9)
[2017-09-09 16:15] LABS: CHOLESTEROL/HDL RATIO 2.7
[2017-09-09 16:51] VITALS: BP 120/70
[2017-09-09 17:10] VITALS: BP 120/70
[2017-09-09 18:17] LABS: AMPHETAMINE QUAL UR NONE DETECTED (NEG <=1000)
[2017-09-09 20:43] VITALS: BP 126/64
[2017-09-10 04:22] VITALS: BP 112/67
[2017-09-10 06:32] LABS: BASOPHIL % 0.3 % (0-2); PLATELET COUNT 154 x10^3mcL (130-400)
[2017-09-10 06:45] LABS: RED CELL DISTRIBUTION WIDTH 20.1 % (11.5-14.5); rbc morphology (normal/abnorm) ABNORMAL (NORMAL)
[2017-09-10 08:33] LABS: CARBON DIOXIDE 32.1 mmol/L (21-32); CHLORIDE SERUM 100 mmol/L (98-107); CREATININE SERUM 1.2 mg/dL (0.7-1.3); GFR1 > 60 mL/min; GLUCOSE SERUM 123 mg/dL (74-106); MAGNESIUM 2.2 mg/dL (1.8-2.4); PHOSPHOROUS 5.1 mg/dL (2.5-4.9); POTASSIUM SERUM 4.1 mmol/L (3.5-5.1); SODIUM SERUM 141 mmol/L (136-145)
[2017-09-10 09:33] VITALS: BP 114/70
[2017-09-10 12:51] VITALS: BP 133/78
[2017-09-10 17:21] VITALS: BP 151/76
[2017-09-10 20:48] VITALS: BP 96/55
[2017-09-11 01:43] VITALS: BP 110/59
[2017-09-11 05:11] VITALS: BP 91/56
[2017-09-11 07:00] LABS: BASOPHIL % 0.2 % (0-2); PLATELET COUNT 153 x10^3mcL (130-400)
[2017-09-11 07:02] LABS: RED CELL DISTRIBUTION WIDTH 19.6 % (11.5-14.5)
[2017-09-11 07:34] LABS: CALCIUM 8.8 mg/dL (8.5-10.1); CARBON DIOXIDE 30.9 mmol/L (21-32); CREATININE SERUM 1.5 mg/dL (0.7-1.3); MAGNESIUM 2.1 mg/dL (1.8-2.4); PHOSPHOROUS 5.3 mg/dL (2.5-4.9); POTASSIUM SERUM 4.1 mmol/L (3.5-5.1)
[2017-09-11 08:50] VITALS: BP 110/57
[2017-09-11 13:14] VITALS: Ht 182.9 cm; Wt 179.6 kg
[2017-09-11 13:56] VITALS: BP 102/62
[2017-09-11] MEDS ORDERED: NOR5 PO (14:14)
[2017-09-11 14:15] VITALS: BP 102/62
[2017-09-11 15:04] VITALS: BP 102/62
== END 2017-09-11 15:53 | disposition home or self-care (01) | DRG 48 ==
LOC: ED 13:51 → DU 15:21
PROVIDERS: Emergency Medicine; Family Medicine
DX: G90.8 Other disorders of autonomic nervous system (principal); N17.0 Acute kidney failure with tubular necrosis; Z88.8 Allergy status to other drugs, medicaments and biological substances; E11.22 Type 2 diabetes mellitus with diabetic chronic kidney disease; W18.39XA Other fall on same level, initial encounter; Y93.89 Activity, other specified; Y92.89 Other specified places as the place of occurrence of the external cause; Y99.8 Other external cause status; N18.2 Chronic kidney disease, stage 2 (mild); F31.9 Bipolar disorder, unspecified; J43.9 Emphysema, unspecified; Z90.49 Acquired absence of other specified parts of digestive tract; Z80.3 Family history of malignant neoplasm of breast; Z80.42 Family history of malignant neoplasm of prostate; Z83.6 Family history of other diseases of the respiratory system; E11.65 Type 2 diabetes mellitus with hyperglycemia; G47.33 Obstructive sleep apnea (adult) (pediatric); E11.42 Type 2 diabetes mellitus with diabetic polyneuropathy; M46.92 Unspecified inflammatory spondylopathy, cervical region; E78.2 Mixed hyperlipidemia; E46 Unspecified protein-calorie malnutrition; E66.01 Morbid (severe) obesity due to excess calories; Z68.42 Body mass index [BMI] 45.0-49.9, adult; S09.90XA Unspecified injury of head, initial encounter
CPT/HCPCS: 83880; 94150; J1644; J1885; J2060; J2405; J7030; J7620; Q0092

== ENCOUNTER 2017-10-02 15:11 | Emergency (ER) | payer OTHER ==
[~2017-10-02] VITALS: Ht 182.9 cm; Wt 180.5 kg
[~2017-10-02 15:11] MED LIST changes: +TIZANIDINE HCL4 MG PO
[2017-10-02 15:15] VITALS: Ht 182.9 cm; Wt 180.5 kg
[2017-10-02 15:59] LABS: BASOPHIL % 0.5 % (0-2); PLATELET COUNT 307 x10^3mcL (130-400)
[2017-10-02 16:01] LABS: RED CELL DISTRIBUTION WIDTH 19.6 % (11.5-14.5)
[2017-10-02 16:03] LABS: CARBON DIOXIDE 32.1 mmol/L (21-32); CHLORIDE SERUM 104 mmol/L (98-107); CREATININE SERUM 1.2 mg/dL (0.7-1.3); GFR1 > 60 mL/min; GLUCOSE SERUM 77 mg/dL (74-106); POTASSIUM SERUM 4.2 mmol/L (3.5-5.1); SODIUM SERUM 142 mmol/L (136-145)
[2017-10-02 16:08] LABS: ALBUMIN 3.3 g/dL (3.4-5.0); ALKALINE PHOSPHATASE 93 U/L (46-116); ALT/SGPT 37 U/L (16-63); AST/SGOT 20 U/L (15-37); BILIRUBIN TOTAL 0.4 mg/dL (0.20-1.00); TOTAL PROTEIN, SERUM 6.5 g/dL (6.4-8.2)
[2017-10-02 16:32] VITALS: BP 94/66
== END 2017-10-02 16:32 | disposition home or self-care (01) ==
LOC: ED 15:11
PROVIDERS: Emergency Medicine
DX: J44.1 Chronic obstructive pulmonary disease with (acute) exacerbation (principal); I10 Essential (primary) hypertension; E11.9 Type 2 diabetes mellitus without complications; Z88.1 Allergy status to other antibiotic agents
CPT/HCPCS: 36415; J1100; J7613; J7644; J8540

== ENCOUNTER 2017-10-14 19:04 | Inpatient (IN) | payer OTHER ==
[~2017-10-14] VITALS: Ht 182.9 cm; Wt 178.8 kg
[~2017-10-14 19:04] MED LIST changes: -LORAZEPAM0.5 MG PO
[2017-10-14 20:47] LABS: CALCIUM 9.4 mg/dL (8.5-10.1); CARBON DIOXIDE 30.2 mmol/L (21-32); CHLORIDE SERUM 100 mmol/L (98-107); CREATININE SERUM 1.1 mg/dL (0.7-1.3); GFR1 > 60 mL/min; GLUCOSE SERUM 306 mg/dL (74-106); POTASSIUM SERUM 4.2 mmol/L (3.5-5.1); SODIUM SERUM 136 mmol/L (136-145)
[2017-10-14 20:51] LABS: ALBUMIN 3.3 g/dL (3.4-5.0); ALKALINE PHOSPHATASE 105 U/L (46-116); ALT/SGPT 48 U/L (16-63); AST/SGOT 14 U/L (15-37); BILIRUBIN TOTAL 0.86 mg/dL (0.20-1.00); TOTAL PROTEIN, SERUM 6.5 g/dL (6.4-8.2)
[2017-10-14 20:57] LABS: BASOPHIL % 0 % (0-2); PLATELET COUNT 240 x10^3mcL (130-400); RED CELL DISTRIBUTION WIDTH 18.5 % (11.5-14.5)
[2017-10-14 22:40] VITALS: BP 136/77
[2017-10-14 22:50] VITALS: BP 136/77
[2017-10-15 00:30] LABS: T3 TOTAL 0.6 ng/mL
[2017-10-15 00:38] LABS: MAGNESIUM 2.1 mg/dL (1.8-2.4)
[2017-10-15 00:49] LABS: FREE T4 0.65 ng/dL (0.76-1.46)
[2017-10-15 00:50] LABS: FREE THYROXINE INDEX 1.3 ug/dL (1.4-4.5)
[2017-10-15 04:34] LABS: PLATELET COUNT 224 x10^3mcL (130-400)
[2017-10-15 04:35] LABS: BASOPHIL % 0 % (0-2); RED CELL DISTRIBUTION WIDTH 18.7 % (11.5-14.5)
[2017-10-15 04:38] LABS: CALCIUM 9.6 mg/dL (8.5-10.1); CHLORIDE SERUM 97 mmol/L (98-107); CREATININE SERUM 1.2 mg/dL (0.7-1.3); GFR1 > 60 mL/min; GLUCOSE SERUM 397 mg/dL (74-106); POTASSIUM SERUM 5.1 mmol/L (3.5-5.1); SODIUM SERUM 135 mmol/L (136-145)
[2017-10-15 05:25] VITALS: BP 136/76
[2017-10-15 09:43] VITALS: BP 123/64
[2017-10-15 13:25] VITALS: BP 119/74
[2017-10-15 13:27] VITALS: BP 134/75
[2017-10-15 15:22] LABS: microscopic required? NO
[2017-10-15 15:25] LABS: urine erythrocyte NEGATIVE (NEGATIVE)
[2017-10-15 15:38] LABS: AMPHETAMINE QUAL UR NONE DETECTED (NEG <=1000)
[2017-10-15 16:52] VITALS: BP 121/60
[2017-10-15 21:50] VITALS: BP 122/69
[2017-10-16 05:14] VITALS: BP 117/71
[2017-10-16 06:58] LABS: CALCIUM 9.9 mg/dL (8.5-10.1); CARBON DIOXIDE 31.8 mmol/L (21-32); CREATININE SERUM 1.5 mg/dL (0.7-1.3); MAGNESIUM 2.6 mg/dL (1.8-2.4); PHOSPHOROUS 5.8 mg/dL (2.5-4.9); POTASSIUM SERUM 4.9 mmol/L (3.5-5.1)
[2017-10-16 06:59] LABS: PLATELET COUNT 262 x10^3mcL (130-400)
[2017-10-16 07:06] LABS: BASOPHIL % 0 % (0-2); RED CELL DISTRIBUTION WIDTH 18.7 % (11.5-14.5)
[2017-10-16 10:15] VITALS: BP 130/76
[2017-10-16 14:07] VITALS: BP 127/73
[2017-10-16 16:32] VITALS: BP 137/75
[2017-10-16 20:30] VITALS: BP 109/71
[2017-10-17 05:02] VITALS: BP 130/73
[2017-10-17 07:48] LABS: PLATELET COUNT 223 x10^3mcL (130-400)
[2017-10-17 08:01] LABS: CALCIUM 9.5 mg/dL (8.5-10.1); CARBON DIOXIDE 29.1 mmol/L (21-32); CHLORIDE SERUM 97 mmol/L (98-107); CREATININE SERUM 1.1 mg/dL (0.7-1.3); GFR1 > 60 mL/min; GLUCOSE SERUM 229 mg/dL (74-106); MAGNESIUM 2.1 mg/dL (1.8-2.4); PHOSPHOROUS 3.6 mg/dL (2.5-4.9); POTASSIUM SERUM 4.7 mmol/L (3.5-5.1); SODIUM SERUM 134 mmol/L (136-145)
[2017-10-17 08:22] VITALS: BP 133/84
[2017-10-17 08:23] LABS: RED CELL DISTRIBUTION WIDTH 18.1 % (11.5-14.5)
[2017-10-17 08:51] VITALS: Ht 182.9 cm; Wt 178.8 kg
[2017-10-17 12:41] LABS: BAND NEUTROPHIL 3 % (0-10); BASOPHIL 0 % (0-2); MONOCYTE 6 % (0-7); SEGMENTED NEUTROPHILS 89 % (37-75)
[2017-10-17 12:42] LABS: rbc morphology (normal/abnorm) ABNORMAL (NORMAL)
[2017-10-17 12:44] VITALS: BP 137/78
[2017-10-17 14:05] VITALS: BP 137/78
[2017-10-17] MEDS ORDERED: MEDDP PO (14:19)
== END 2017-10-17 15:29 | disposition home health service (06) | DRG 682 ==
LOC: ED 19:04 → DU 21:36
PROVIDERS: Emergency Medicine Emergency Medical Services; Family Medicine
DX: N17.0 Acute kidney failure with tubular necrosis (principal); J96.21 Acute and chronic respiratory failure with hypoxia; J18.8 Other pneumonia, unspecified organism; J44.1 Chronic obstructive pulmonary disease with (acute) exacerbation; E44.1 Mild protein-calorie malnutrition; E66.2 Morbid (severe) obesity with alveolar hypoventilation; J44.0 Chronic obstructive pulmonary disease with (acute) lower respiratory infection; Z68.43 Body mass index [BMI] 50.0-59.9, adult; Z99.81 Dependence on supplemental oxygen; E11.65 Type 2 diabetes mellitus with hyperglycemia; F32.9 Major depressive disorder, single episode, unspecified; F41.9 Anxiety disorder, unspecified; D64.9 Anemia, unspecified; E11.51 Type 2 diabetes mellitus with diabetic peripheral angiopathy without gangrene; F43.10 Post-traumatic stress disorder, unspecified; N18.9 Chronic kidney disease, unspecified; J20.9 Acute bronchitis, unspecified; E11.22 Type 2 diabetes mellitus with diabetic chronic kidney disease; I12.9 Hypertensive chronic kidney disease with stage 1 through stage 4 chronic kidney disease, or unspecified chronic kidney disease; M19.90 Unspecified osteoarthritis, unspecified site; Z90.49 Acquired absence of other specified parts of digestive tract; Z98.42 Cataract extraction status, left eye; Z98.41 Cataract extraction status, right eye; Z88.1 Allergy status to other antibiotic agents; Z83.6 Family history of other diseases of the respiratory system; Z80.3 Family history of malignant neoplasm of breast; Z80.8 Family history of malignant neoplasm of other organs or systems; Z80.42 Family history of malignant neoplasm of prostate; Z87.891 Personal history of nicotine dependence
CPT/HCPCS: 83880; 84439; 85378; 94150; C9113; J1815; J1885; J2270; J2920; J2930; J7030; J7040; J7620; J8597; Q0092

== ENCOUNTER 2017-10-28 09:49 | Inpatient (IN) | payer OTHER ==
[~2017-10-28] VITALS: Ht 182.9 cm; Wt 174.4 kg
[2017-10-28 09:51] VITALS: Ht 182.9 cm; Wt 174.4 kg
[2017-10-28 10:44] LABS: BASOPHIL % 0.2 % (0-2); PLATELET COUNT 386 x10^3mcL (130-400)
[2017-10-28 10:46] LABS: RED CELL DISTRIBUTION WIDTH 17.5 % (11.5-14.5)
[2017-10-28 10:52] LABS: CALCIUM 9.6 mg/dL (8.5-10.1); CARBON DIOXIDE 31.9 mmol/L (21-32); CHLORIDE SERUM 98 mmol/L (98-107); CREATININE SERUM 1.3 mg/dL (0.7-1.3); GFR1 > 60 mL/min; GLUCOSE SERUM 249 mg/dL (74-106); POTASSIUM SERUM 4.7 mmol/L (3.5-5.1); SODIUM SERUM 141 mmol/L (136-145)
[2017-10-28 10:56] LABS: ALKALINE PHOSPHATASE 86 U/L (46-116); ALT/SGPT 49 U/L (16-63); AMYLASE 59 U/L (25-115); AST/SGOT 22 U/L (15-37); BILIRUBIN TOTAL 0.53 mg/dL (0.20-1.00); LIPASE 114 IU/L (73-393); TOTAL PROTEIN, SERUM 6.7 g/dL (6.4-8.2)
[2017-10-28 10:57] LABS: ALBUMIN 2.8 g/dL (3.4-5.0)
[2017-10-28 13:09] LABS: T3 TOTAL 1.01 ng/mL
[2017-10-28 13:15] LABS: FREE T4 1.05 ng/dL (0.76-1.46); FREE THYROXINE INDEX 2.9 ug/dL (1.4-4.5); T4(THYROXINE) 8.6 ug/dL (4.7-13.3)
[2017-10-28 13:30] VITALS: BP 127/89
[2017-10-28 13:40] LABS: RED BLOOD CELLS 3.76 M/mm3 (4.52-5.90)
[2017-10-28 13:44] LABS: IRON 90 ug/dL (65-170); TOTAL IRON BINDING CAPACITY 283 ug/dL (250-450)
[2017-10-28 13:45] LABS: UA SPECIFIC GRAVITY 1.015 (1.005-1.035); microscopic required? YES; urine erythrocyte NEGATIVE (NEGATIVE)
[2017-10-28 14:00] LABS: MAGNESIUM 1.5 mg/dL (1.8-2.4); PHOSPHOROUS 2.4 mg/dL (2.5-4.9)
[2017-10-28 14:04] VITALS: BP 146/68
[2017-10-28 14:14] LABS: CHOLESTEROL/HDL RATIO 4.1
[2017-10-28 14:16] LABS: AMPHETAMINE QUAL UR NONE DETECTED (NEG <=1000)
[2017-10-28 16:55] VITALS: BP 126/71
[2017-10-28 17:45] VITALS: BP 122/80
[2017-10-28 23:10] VITALS: BP 124/69
[2017-10-29] VITALS (7 sets, daily range): BP systolic 87–122; BP diastolic 46–83
[2017-10-29 06:50] LABS: CALCIUM 9.1 mg/dL (8.5-10.1); CARBON DIOXIDE 29.1 mmol/L (21-32); CHLORIDE SERUM 105 mmol/L (98-107); CREATININE SERUM 1.1 mg/dL (0.7-1.3); GFR1 > 60 mL/min; GLUCOSE SERUM 159 mg/dL (74-106); MAGNESIUM 1.9 mg/dL (1.8-2.4); PHOSPHOROUS 3.9 mg/dL (2.5-4.9); SODIUM SERUM 142 mmol/L (136-145)
[2017-10-29 07:57] LABS: BASOPHIL % 0.3 % (0-2); PLATELET COUNT 333 x10^3mcL (130-400)
[2017-10-29 08:00] LABS: RED CELL DISTRIBUTION WIDTH 17.5 % (11.5-14.5)
[2017-10-30 06:03] VITALS: BP 123/67
[2017-10-30 06:17] VITALS: BP 123/67
[2017-10-30 06:38] LABS: BASOPHIL % 0.3 % (0-2); PLATELET COUNT 324 x10^3mcL (130-400)
[2017-10-30 07:09] LABS: CARBON DIOXIDE 27.2 mmol/L (21-32); CHLORIDE SERUM 103 mmol/L (98-107); CREATININE SERUM 1.1 mg/dL (0.7-1.3); GFR1 > 60 mL/min; GLUCOSE SERUM 204 mg/dL (74-106); POTASSIUM SERUM 3.7 mmol/L (3.5-5.1); RED CELL DISTRIBUTION WIDTH 18.2 % (11.5-14.5); SODIUM SERUM 138 mmol/L (136-145)
[2017-10-30 09:28] VITALS: BP 114/65
[2017-10-30 13:30] VITALS: BP 116/56
[2017-10-30 17:34] VITALS: BP 112/52
[2017-10-30 21:51] VITALS: BP 108/52
[2017-10-31 05:58] VITALS: BP 100/54
[2017-10-31 06:28] LABS: CALCIUM 8.9 mg/dL (8.5-10.1); CARBON DIOXIDE 27.8 mmol/L (21-32); CHLORIDE SERUM 104 mmol/L (98-107); GFR1 > 60 mL/min; GLUCOSE SERUM 186 mg/dL (74-106); PHOSPHOROUS 3.6 mg/dL (2.5-4.9); POTASSIUM SERUM 4.2 mmol/L (3.5-5.1); SODIUM SERUM 139 mmol/L (136-145)
[2017-10-31 06:37] LABS: BASOPHIL % 0.3 % (0-2); PLATELET COUNT 323 x10^3mcL (130-400)
[2017-10-31 07:03] LABS: RED CELL DISTRIBUTION WIDTH 18.7 % (11.5-14.5)
[2017-10-31] MEDS ORDERED: AZITHROMYCIN250 M1 PO (11:49)
[2017-10-31 13:50] VITALS: BP 109/60
[2017-10-31] MEDS ORDERED: LORAZEPAM0.5 MG PO (14:19)
== END 2017-10-31 14:50 | disposition home or self-care (01) | DRG 871 ==
LOC: ED 09:49 → DU 12:22 → MU 10-30 07:40
PROVIDERS: Emergency Medicine; Family Medicine
DX: A41.9 Sepsis, unspecified organism (principal); N17.0 Acute kidney failure with tubular necrosis; E43 Unspecified severe protein-calorie malnutrition; Z68.43 Body mass index [BMI] 50.0-59.9, adult; J44.1 Chronic obstructive pulmonary disease with (acute) exacerbation; N18.2 Chronic kidney disease, stage 2 (mild); E11.22 Type 2 diabetes mellitus with diabetic chronic kidney disease; I12.9 Hypertensive chronic kidney disease with stage 1 through stage 4 chronic kidney disease, or unspecified chronic kidney disease; F41.9 Anxiety disorder, unspecified; F31.9 Bipolar disorder, unspecified; E11.65 Type 2 diabetes mellitus with hyperglycemia; E66.01 Morbid (severe) obesity due to excess calories; E11.42 Type 2 diabetes mellitus with diabetic polyneuropathy; D64.9 Anemia, unspecified; G47.33 Obstructive sleep apnea (adult) (pediatric); E83.42 Hypomagnesemia; N20.0 Calculus of kidney; Z53.21 Procedure and treatment not carried out due to patient leaving prior to being seen by health care provider; M47.9 Spondylosis, unspecified; Z90.49 Acquired absence of other specified parts of digestive tract; Z98.42 Cataract extraction status, left eye; Z98.41 Cataract extraction status, right eye; Z79.899 Other long term (current) drug therapy; Z80.42 Family history of malignant neoplasm of prostate; Z80.49 Family history of malignant neoplasm of other genital organs; Z82.5 Family history of asthma and other chronic lower respiratory diseases; Z81.8 Family history of other mental and behavioral disorders; Z80.3 Family history of malignant neoplasm of breast; Z87.891 Personal history of nicotine dependence; Z88.1 Allergy status to other antibiotic agents
CPT/HCPCS: 83880; 84439; 87046; 87046-59; 94150; J0696; J1644; J1885; J3475; J3490; J7030; J7620; J7633; Q0092

== ENCOUNTER 2017-12-08 11:35 | Inpatient (IN) | payer OTHER ==
[~2017-12-08] VITALS: Ht 182.9 cm; Wt 178.8 kg
[~2017-12-08 11:35] MED LIST changes: +LORAZEPAM0.5 MG PO
[2017-12-08 11:49] VITALS: Ht 182.9 cm; Wt 178.8 kg
[2017-12-08 12:24] LABS: BASOPHIL % 0.1 % (0-2); PLATELET COUNT 255 x10^3mcL (130-400)
[2017-12-08 12:26] LABS: RED CELL DISTRIBUTION WIDTH 17.1 % (11.5-14.5)
[2017-12-08 12:44] LABS: CALCIUM 9.3 mg/dL (8.5-10.1); CARBON DIOXIDE 31.3 mmol/L (21-32); CREATININE SERUM 1.4 mg/dL (0.7-1.3); POTASSIUM SERUM 3.9 mmol/L (3.5-5.1)
[2017-12-08 12:49] LABS: BILIRUBIN TOTAL 0.41 mg/dL (0.20-1.00); TOTAL PROTEIN, SERUM 6.8 g/dL (6.4-8.2)
[2017-12-08 12:51] LABS: ALBUMIN 3.2 g/dL (3.4-5.0)
[2017-12-08] MEDS ORDERED: PROZAC40 MG PO (13:54)
[2017-12-08] MEDS ORDERED: ATROVENT H0.017 MG/1 INH (13:56)
[2017-12-08] MEDS ORDERED: LASIX20 MG PO (13:56)
[2017-12-08] MEDS ORDERED: NOR5 PO (13:56)
[2017-12-08] MEDS ORDERED: HUMALOG KW100 UNIT/1 SQ (13:57)
[2017-12-08] MEDS ORDERED: LOSARTAN POTASS25 M1 PO (13:57)
[2017-12-08] MEDS ORDERED: LANTUS SOLOS100 U/M1 SQ (13:58)
[2017-12-08 14:40] VITALS: BP 107/56
[2017-12-08 15:25] LABS: T3 TOTAL 0.71 ng/mL
[2017-12-08 15:47] LABS: CHOLESTEROL/HDL RATIO 4.5; MAGNESIUM 2.2 mg/dL (1.8-2.4); PHOSPHOROUS 3.2 mg/dL (2.5-4.9)
[2017-12-08 15:57] LABS: FREE T4 0.62 ng/dL (0.76-1.46)
[2017-12-08 15:58] LABS: FREE THYROXINE INDEX 1.4 ug/dL (1.4-4.5); T4(THYROXINE) 4.5 ug/dL (4.7-13.3)
[2017-12-08 17:39] VITALS: BP 115/48
[2017-12-08 21:33] VITALS: BP 110/65
[2017-12-08 23:23] LABS: microscopic required? NO
[2017-12-08 23:41] LABS: UA SPECIFIC GRAVITY 1.025 (1.005-1.035); urine erythrocyte NEGATIVE (NEGATIVE)
[2017-12-09 00:05] LABS: AMPHETAMINE QUAL UR NONE DETECTED (NEG <=1000)
[2017-12-09 06:05] VITALS: BP 117/55
[2017-12-09 06:46] LABS: PLATELET COUNT 247 x10^3mcL (130-400)
[2017-12-09 06:48] LABS: BASOPHIL % 0 % (0-2); RED CELL DISTRIBUTION WIDTH 17.6 % (11.5-14.5)
[2017-12-09 06:54] LABS: CALCIUM 8.9 mg/dL (8.5-10.1); CARBON DIOXIDE 27.9 mmol/L (21-32); CHLORIDE SERUM 102 mmol/L (98-107); CREATININE SERUM 1.3 mg/dL (0.7-1.3); GFR1 > 60 mL/min; GLUCOSE SERUM 398 mg/dL (74-106); MAGNESIUM 2.3 mg/dL (1.8-2.4); PHOSPHOROUS 4.5 mg/dL (2.5-4.9); POTASSIUM SERUM 4.5 mmol/L (3.5-5.1); SODIUM SERUM 137 mmol/L (136-145)
[2017-12-09 09:35] VITALS: BP 112/46
[2017-12-09 13:30] VITALS: BP 127/64
[2017-12-09 17:25] VITALS: BP 117/57
[2017-12-09 21:20] VITALS: BP 124/62
[2017-12-10 05:53] VITALS: BP 115/61
[2017-12-10 06:08] LABS: BASOPHIL % 0.2 % (0-2); PLATELET COUNT 257 x10^3mcL (130-400)
[2017-12-10 06:34] LABS: CALCIUM 8.9 mg/dL (8.5-10.1); CARBON DIOXIDE 31.4 mmol/L (21-32); CHLORIDE SERUM 102 mmol/L (98-107); CREATININE SERUM 1.1 mg/dL (0.7-1.3); GFR1 > 60 mL/min; GLUCOSE SERUM 326 mg/dL (74-106); MAGNESIUM 2.4 mg/dL (1.8-2.4); PHOSPHOROUS 3.5 mg/dL (2.5-4.9); POTASSIUM SERUM 4.7 mmol/L (3.5-5.1); SODIUM SERUM 136 mmol/L (136-145)
[2017-12-10 06:45] LABS: RED CELL DISTRIBUTION WIDTH 17.6 % (11.5-14.5)
[2017-12-10] MEDS ORDERED: ZITHROMAX TRI-500 MG PO (09:00)
[2017-12-10] MEDS ORDERED: LAC PO (09:01)
[2017-12-10] MEDS ORDERED: GLIPIZIDE10 M2 PO (09:02)
[2017-12-10] MEDS ORDERED: PEP20 PO (09:04)
[2017-12-10] MEDS ORDERED: LANTUS SOLOS100 U/M1 SQ (09:10)
[2017-12-10 09:19] VITALS: BP 139/78
[2017-12-10] MEDS ORDERED: MEDDP PO (11:03)
[2017-12-10 11:59] VITALS: BP 139/78
== END 2017-12-10 13:10 | disposition home or self-care (01) | DRG 189 ==
LOC: ED 11:35 → DU 13:27 → EDBEDREQ 13:32 → DU 14:20
PROVIDERS: Emergency Medicine; Family Medicine
DX: J96.20 Acute and chronic respiratory failure, unspecified whether with hypoxia or hypercapnia (principal); N17.0 Acute kidney failure with tubular necrosis; J44.1 Chronic obstructive pulmonary disease with (acute) exacerbation; E44.1 Mild protein-calorie malnutrition; Z68.43 Body mass index [BMI] 50.0-59.9, adult; I42.2 Other hypertrophic cardiomyopathy; N17.9 Acute kidney failure, unspecified; I13.10 Hypertensive heart and chronic kidney disease without heart failure, with stage 1 through stage 4 chronic kidney disease, or unspecified chronic kidney disease; E11.65 Type 2 diabetes mellitus with hyperglycemia; E11.22 Type 2 diabetes mellitus with diabetic chronic kidney disease; N18.2 Chronic kidney disease, stage 2 (mild); E11.51 Type 2 diabetes mellitus with diabetic peripheral angiopathy without gangrene; K21.9 Gastro-esophageal reflux disease without esophagitis; G47.33 Obstructive sleep apnea (adult) (pediatric); M19.90 Unspecified osteoarthritis, unspecified site; E78.5 Hyperlipidemia, unspecified; F43.10 Post-traumatic stress disorder, unspecified; F32.9 Major depressive disorder, single episode, unspecified; F41.9 Anxiety disorder, unspecified; E66.01 Morbid (severe) obesity due to excess calories
CPT/HCPCS: 83880; 84439; 94150; J0696; J1644; J1815; J1940; J2405; J2920; J2930; J7030; J7050; J7613; J7620; J7644; Q0092

== ENCOUNTER 2018-01-11 15:16 | Emergency (ER) | payer OTHER ==
[~2018-01-11] VITALS: Ht 182.9 cm; Wt 184.7 kg
[~2018-01-11 15:16] MED LIST changes: +GLIPIZIDE10 M2 PO; +HUMALOG KW100 UNIT/1 SQ; +LANTUS SOLOS100 U/M1 SQ; +LOSARTAN POTASS25 M1 PO; +PEP20 PO; +PROZAC40 MG PO; +ZITHROMAX TRI-500 MG PO
[2018-01-11 15:32] VITALS: Ht 182.9 cm; Wt 184.7 kg
[2018-01-11 17:29] LABS: CALCIUM 9.2 mg/dL (8.5-10.1); CARBON DIOXIDE 37.8 mmol/L (21-32); CHLORIDE SERUM 99 mmol/L (98-107); CREATININE SERUM 1.1 mg/dL (0.7-1.3); GFR1 > 60 mL/min; GLUCOSE SERUM 291 mg/dL (74-106); SODIUM SERUM 141 mmol/L (136-145)
[2018-01-11 17:34] LABS: BASOPHIL % 0.3 % (0-2); PLATELET COUNT 276 x10^3mcL (130-400)
[2018-01-11 17:36] LABS: ALKALINE PHOSPHATASE 134 U/L (46-116); ALT/SGPT 31 U/L (16-63); AST/SGOT 17 U/L (15-37); BILIRUBIN TOTAL 0.59 mg/dL (0.20-1.00); HDL CHOLESTEROL 36 mg/dL (40-60); TOTAL PROTEIN, SERUM 7.1 g/dL (6.4-8.2)
[2018-01-11 17:38] LABS: RED CELL DISTRIBUTION WIDTH 17.1 % (11.5-14.5)
[2018-01-11 17:42] LABS: ALBUMIN 3.3 g/dL (3.4-5.0); CHOLESTEROL 116 mg/dL (<200)
[2018-01-11 18:18] LABS: microscopic required? NO
[2018-01-11 18:37] LABS: urine erythrocyte NEGATIVE (NEGATIVE)
[2018-01-11 19:06] VITALS: BP 101/65
== END 2018-01-11 19:06 | disposition home or self-care (01) ==
LOC: ED 15:16
PROVIDERS: Emergency Medicine
DX: J44.1 Chronic obstructive pulmonary disease with (acute) exacerbation (principal); J45.901 Unspecified asthma with (acute) exacerbation; E11.65 Type 2 diabetes mellitus with hyperglycemia; E66.9 Obesity, unspecified; Z68.43 Body mass index [BMI] 50.0-59.9, adult; Z88.1 Allergy status to other antibiotic agents
CPT/HCPCS: 83880; J2930; J7613; Q0092

== ENCOUNTER 2018-01-21 08:42 | Inpatient (IN) | payer OTHER ==
[~2018-01-21] VITALS: Ht 182.9 cm; Wt 186.9 kg
[~2018-01-21 08:42] MED LIST changes: -BREO ELLIPTA1 PO1; +BREO ELLIPTA1 PO1 INH
[2018-01-21 08:53] VITALS: Ht 182.9 cm; Wt 186.9 kg
[2018-01-21 09:36] LABS: BASOPHIL % 0.3 % (0-2); PLATELET COUNT 235 x10^3mcL (130-400)
[2018-01-21 09:50] LABS: RED CELL DISTRIBUTION WIDTH 17.4 % (11.5-14.5)
[2018-01-21 09:52] LABS: ALBUMIN 2.9 g/dL (3.4-5.0); ALKALINE PHOSPHATASE 141 U/L (46-116); ALT/SGPT 25 U/L (16-63); AMYLASE 47 U/L (25-115); AST/SGOT 15 U/L (15-37); BILIRUBIN TOTAL 0.5 mg/dL (0.20-1.00); CALCIUM 9.2 mg/dL (8.5-10.1); CHLORIDE SERUM 102 mmol/L (98-107); CHOLESTEROL 107 mg/dL (<200); CREATININE SERUM 1.2 mg/dL (0.7-1.3); GFR1 > 60 mL/min; GLUCOSE SERUM 306 mg/dL (74-106); HDL CHOLESTEROL 34 mg/dL (40-60); LIPASE 121 IU/L (73-393); SODIUM SERUM 140 mmol/L (136-145); T4(THYROXINE) 4.3 ug/dL (4.7-13.3); TOTAL PROTEIN, SERUM 6.2 g/dL (6.4-8.2)
[2018-01-21] MEDS ORDERED: CLARITIN10 MG PO (11:10)
[2018-01-21] MEDS ORDERED: PRE30 PO (11:11)
[2018-01-21] MEDS ORDERED: NEU300 PO (11:13)
[2018-01-21] MEDS ORDERED: HUMALOG KW100 UNIT/1 SQ (11:14)
[2018-01-21] MEDS ORDERED: MECLIZINE HYDRO25 M1 PO (11:15)
[2018-01-21] MEDS ORDERED: ALBUTEROL SULFAT0.51 NEB (11:15)
[2018-01-21] MEDS ORDERED: PROTONIX40 MG PO (11:16)
[2018-01-21] MEDS ORDERED: LANTI SQ (11:17)
[2018-01-21] MEDS ORDERED: TOVIAZ8 MG PO (11:17)
[2018-01-21] MEDS ORDERED: LASIX40 MG PO (11:17)
[2018-01-21] MEDS ORDERED: NITROGLYCERIN0.4 MG SL (11:19)
[2018-01-21 11:26] LABS: MAGNESIUM 2.1 mg/dL (1.8-2.4); PHOSPHOROUS 2.8 mg/dL (2.5-4.9)
[2018-01-21 12:39] VITALS: BP 130/70
[2018-01-21 12:56] LABS: microscopic required? YES; urine erythrocyte NEGATIVE (NEGATIVE)
[2018-01-21 13:24] LABS: AMPHETAMINE QUAL UR NONE DETECTED (See below)
[2018-01-21 16:37] VITALS: BP 113/70
[2018-01-21 17:40] VITALS: BP 113/70
[2018-01-21 18:16] VITALS: BP 120/73
[2018-01-21 21:06] VITALS: BP 102/43
[2018-01-21 21:10] VITALS: BP 90/60
[2018-01-22 05:34] VITALS: BP 101/53
[2018-01-22 08:30] VITALS: BP 105/66
[2018-01-22 09:55] VITALS: BP 112/61
[2018-01-22 10:06] LABS: BASOPHIL % 0.3 % (0-2); PLATELET COUNT 239 x10^3mcL (130-400)
[2018-01-22 10:07] LABS: RED CELL DISTRIBUTION WIDTH 17.4 % (11.5-14.5)
[2018-01-22 10:12] LABS: CALCIUM 9.1 mg/dL (8.5-10.1); CARBON DIOXIDE 34.7 mmol/L (21-32); CHLORIDE SERUM 104 mmol/L (98-107); GFR1 > 60 mL/min; GLUCOSE SERUM 230 mg/dL (74-106); SODIUM SERUM 139 mmol/L (136-145)
[2018-01-22 12:33] VITALS: BP 111/63
[2018-01-22 17:28] VITALS: BP 117/73
[2018-01-22 21:18] VITALS: BP 117/62
[2018-01-23 05:54] VITALS: BP 110/63
[2018-01-23 06:27] LABS: BASOPHIL % 0.2 % (0-2); PLATELET COUNT 243 x10^3mcL (130-400)
[2018-01-23 06:34] LABS: CALCIUM 9.6 mg/dL (8.5-10.1); CARBON DIOXIDE 32.2 mmol/L (21-32); CHLORIDE SERUM 103 mmol/L (98-107); CREATININE SERUM 1.1 mg/dL (0.7-1.3); GFR1 > 60 mL/min; GLUCOSE SERUM 181 mg/dL (74-106); POTASSIUM SERUM 4.2 mmol/L (3.5-5.1); SODIUM SERUM 141 mmol/L (136-145)
[2018-01-23 06:41] LABS: RED CELL DISTRIBUTION WIDTH 17.7 % (11.5-14.5)
[2018-01-23 08:48] VITALS: BP 109/80
[2018-01-23] MEDS ORDERED: LASIX20 MG PO (09:58)
[2018-01-23] MEDS ORDERED: GABAPENTIN600 M1 PO (09:58)
[2018-01-23 09:59] VITALS: BP 109/80
== END 2018-01-23 11:40 | disposition home or self-care (01) | DRG 205 ==
LOC: ED 08:42 → DU 10:35
PROVIDERS: Emergency Medicine; Family Medicine
DX: M94.0 Chondrocostal junction syndrome [Tietze] (principal); J96.01 Acute respiratory failure with hypoxia; J44.1 Chronic obstructive pulmonary disease with (acute) exacerbation; E44.0 Moderate protein-calorie malnutrition; Z68.43 Body mass index [BMI] 50.0-59.9, adult; G47.33 Obstructive sleep apnea (adult) (pediatric); E11.65 Type 2 diabetes mellitus with hyperglycemia; E11.51 Type 2 diabetes mellitus with diabetic peripheral angiopathy without gangrene; E11.42 Type 2 diabetes mellitus with diabetic polyneuropathy; I10 Essential (primary) hypertension; K21.9 Gastro-esophageal reflux disease without esophagitis; M19.90 Unspecified osteoarthritis, unspecified site; G43.909 Migraine, unspecified, not intractable, without status migrainosus; F43.10 Post-traumatic stress disorder, unspecified; F41.9 Anxiety disorder, unspecified; F32.9 Major depressive disorder, single episode, unspecified; E66.01 Morbid (severe) obesity due to excess calories; Z79.84 Long term (current) use of oral hypoglycemic drugs
CPT/HCPCS: 83880; 94150; J1644; J1815; J1885; J1940; J2405; J3490; J7030; J7620; Q0092

== ENCOUNTER 2018-02-07 20:34 | Emergency (ER) | payer OTHER ==
[~2018-02-07] VITALS: Ht 182.9 cm; Wt 182.8 kg
[~2018-02-07 20:34] MED LIST changes: +ALBUTEROL SULFAT0.51 NEB; +CLARITIN10 MG PO; +LANTI SQ; +LASIX40 MG PO; +PROTONIX40 MG PO; +TOVIAZ8 MG PO
[2018-02-07 20:41] VITALS: Ht 182.9 cm; Wt 182.8 kg
[2018-02-07 21:31] LABS: BASOPHIL % 0.7 % (0-2); PLATELET COUNT 288 x10^3mcL (130-400)
[2018-02-07 21:43] LABS: CALCIUM 9.2 mg/dL (8.5-10.1); CHLORIDE SERUM 101 mmol/L (98-107); CREATININE SERUM 1.2 mg/dL (0.7-1.3); GFR1 > 60 mL/min; GLUCOSE SERUM 172 mg/dL (74-106); POTASSIUM SERUM 3.8 mmol/L (3.5-5.1); RED CELL DISTRIBUTION WIDTH 17.7 % (11.5-14.5); SODIUM SERUM 140 mmol/L (136-145)
[2018-02-07 21:48] LABS: ALKALINE PHOSPHATASE 122 U/L (46-116); ALT/SGPT 26 U/L (16-63); AST/SGOT 18 U/L (15-37); LIPASE 102 IU/L (73-393); TOTAL PROTEIN, SERUM 7.1 g/dL (6.4-8.2)
[2018-02-07 21:55] LABS: microscopic required? NO
[2018-02-07 22:19] LABS: urine erythrocyte NEGATIVE (NEGATIVE)
[2018-02-07 23:04] VITALS: BP 97/45
== END 2018-02-07 23:33 | disposition home or self-care (01) ==
LOC: ED 20:34
PROVIDERS: Emergency Medicine
DX: K27.9 Peptic ulcer, site unspecified, unspecified as acute or chronic, without hemorrhage or perforation (principal); I10 Essential (primary) hypertension; E11.9 Type 2 diabetes mellitus without complications; E78.00 Pure hypercholesterolemia, unspecified; E66.01 Morbid (severe) obesity due to excess calories; Z88.1 Allergy status to other antibiotic agents
CPT/HCPCS: 83880; J2765; Q0092; Q0162